=== PATIENT | female | born 1950 | race Caucasian/White ===

== ENCOUNTER 2017-10-10 14:04 | Emergency (ER) | payer OTHER ==
[~2017-10-10] VITALS: Ht 154.9 cm; Wt 81.7 kg
[2017-10-10 14:16] VITALS: BP 130/76; PULSE 86; RESP 16; TEMP 97.6; O2SAT 96
[2017-10-10] MEDS ORDERED: LISI10TA3 PO (14:33)
[2017-10-10] MEDS ORDERED: MONT10TA2 PO (14:33)
[2017-10-10] MEDS ORDERED: TRAM50TA PO (14:33)
[2017-10-10] MEDS ORDERED: DEXI60CA3 PO (14:33)
[2017-10-10] MEDS ORDERED: CELE1CAP8 PO (14:33)
[2017-10-10] MEDS ORDERED: LYRI150C PO (14:33)
[2017-10-10] MEDS ORDERED: CHOL5000 PO (14:33)
--- NOTE | 2017-10-10 15:38 | PD ---
HPI Chief Complaint: Musculoskeletal Complaint Time Seen by Provider: 15:07 Travel History International Travel<30 days: No Contact w/Intl Traveler<30days: No Traveled to known affect area: No History of Present Illness HPI This is a 66-year-old female here with cellulitis isolated to the toe. She had a "cyst" removed by [facility] yesterday and developed pain, erythema, warmth of the area since last night. No fever or chills. Symptoms severity is moderate. No aggravating or alleviating factors. PFSH Past Medical History Arthritis: Yes Cardiovascular Problems: Yes (htn on meds) Diminished Hearing: No Hypertension: Yes Influenza Vaccination: No ?: Not Social History Alcohol Use: No Tobacco Use: No Allergies-Medications (Allergen,Severity, Reaction): Coded Allergies: meperidine (Verified Allergy, Severe, Hallucinations, 10/10/17) morphine (Verified Allergy, Intermediate, nausea and vomiting, 10/10/17) Reported Meds & Prescriptions Reported Meds & Active Scripts Active Ultram (Tramadol HCl) 50 Mg Tab 50 Mg PO Q6H PRN Clindamycin (Clindamycin HCl) 300 Mg Cap 300 Mg PO Q6H 10 Days Reported Vitamin D3 (Cholecalciferol) 5,000 Unit Cap 5,000 Units PO DAILY Singulair (Montelukast Sodium) 10 Mg Tab 10 Mg PO HS Celecoxib 200 Mg Cap 200 Mg PO BID Tramadol (Tramadol HCl) 50 Mg Tab 50 Mg PO BID PRN Lyrica (Pregabalin) 150 Mg Cap 150 Mg PO BID Lisinopril 10 Mg Tab 10 Mg PO DAILY Dexilant (Dexlansoprazole) 60 Mg Cap.bp 60 Mg PO DAILY Review of Systems Except as stated in HPI: all other systems reviewed are Neg General / Constitutional: No: Fever HENT: No: Headaches Gastrointestinal: No: Abdominal Pain Physical Exam Narrative GENERAL: Alert and well-appearing 66-year-old female. SKIN: Warm and dry. Small 0.5 cm open wound to the dorsal aspect of the great toe with small amount of clear drainage. The entire right great toe is erythematous with mild edema. She is able to flex and extend the toe. The area is slightly warm. HEAD: Normocephalic. EYES: No injection or drainage. NECK: Supple CARDIOVASCULAR: Regular rate and rhythm RESPIRATORY: Breath sounds equal bilaterally. No accessory muscle use. MUSCULOSKELETAL: No cyanosis, or edema. Right foot: See skin noted above. Patient has cellulitis of the right great toe extending slightly into the dorsum of the foot. 2+ distal pulses. Patient moves all toes freely. His cap refill Data Data Last Documented VS Vital Signs Date Time Temp Pulse Resp B/P (MAP) Pulse Ox O2 Delivery O2 Flow Rate FiO2 10/10/17 14:16 97.6 86 16 130/76 (94) 96 Orders Orders Clindamycin (Cleocin) (10/10/17 15:45) Tramadol (Ultram) (10/10/17 15:45) Ed Discharge Order (10/10/17 15:43) MDM Medical Decision Making Medical Screen Exam Complete: Yes Emergency Medical Condition: Yes Differential Diagnosis Cellulitis, abscess, surgical wound infection Narrative Course This is a 66-year-old female here with cellulitis isolated to the toe. She had a "cyst" removed by [facility] yesterday and developed pain, erythema, warmth of the area since last night. No fever or chills. She is nontoxic appearing. She has cellulitis of the great toe extending slightly into the dorsal aspect of the foot. The area was marked with a wound PEN and she was put on clindamycin. She is instructed to follow-up with the block bolter mule operator on Thursday or return prior if she develops new or worsening symptoms. Diagnosis Primary Impression: Cellulitis of right foot Referrals: [facility] [employer] [employer] Additional Instructions: Antibiotics as directed. Ultram as needed for pain. Follow-up with podiatry on Thursday morning for recheck. Return if he developed fever, increasing pain, increasing redness Scripts Tramadol (Ultram) 50 Mg Tab 50 MG PO Q6H Y for PAIN, #8 TAB 0 Refills Prov: Yessy Luther 10/10/17 Clindamycin (Clindamycin) 300 Mg Cap 300 MG PO Q6H for Infection for 10 Days, #40 CAP 0 Refills Prov: Yessy Luther 10/10/17 Disposition: 01 DISCHARGE HOME Condition: Stable Yessy Luther Oct 10, 2017 15:38
[2017-10-10] MEDS ORDERED: CLIN300C5 PO (15:41)
[2017-10-10] MEDS ORDERED: TRAM50 PO (15:42)
[2017-10-10] MEDS ORDERED: traMADol HCL 50 MG TAB PO ONE (15:45)
[2017-10-10] MEDS ORDERED: CLINDAMYCIN 150 MG CAP PO ONE (15:45)
== END 2017-10-10 15:50 | disposition home or self-care (01) ==
LOC: PHEFT 14:04
DX: L03.031 Cellulitis of right toe (principal); I10 Essential (primary) hypertension; Z88.8 Allergy status to other drugs, medicaments and biological substances; Z79.899 Other long term (current) drug therapy
CPT/HCPCS: 99283

== ENCOUNTER 2017-10-12 12:09 | Inpatient (IN) | payer OTHER, MEDICARE ==
[~2017-10-12] VITALS: Ht 154.9 cm; Wt 83.0 kg
[2017-10-12] VITALS (7 sets, daily range): BP systolic 86–134; BP diastolic 51–84; PULSE 76–103; RESP 16–20; TEMP 97.8–98.6; O2SAT 94–98
[~2017-10-12 12:09] MED LIST: CELE1CAP8 PO; CHOL5000 PO; CLIN300C5 PO; DEXI60CA3 PO; LISI10TA3 PO; LYRI150C PO; MONT10TA2 PO; TRAM50 PO; TRAM50TA PO
[2017-10-12] MEDS ORDERED: VITA10002 PO (12:30)
[2017-10-12] MEDS ORDERED: ADVA250A INH (12:33)
--- NOTE | 2017-10-12 12:57 | PD ---
HPI Chief Complaint: Pain: Acute or Chronic Time Seen by Provider: 12:27 Travel History International Travel<30 days: No Contact w/Intl Traveler<30days: No Traveled to known affect area: No History of Present Illness HPI 66-year-old female with history of diabetes mellitus, presents today with complaint of right toe and forefoot redness after having a surgical procedure 3 days ago. Patient states she had a growth removed from the top of her right great toe. She states that shortly thereafter started becoming more painful. She reports it started having redness that extended up the foot. There is no reported fevers. The patient states that she was switched over to a second antibiotic on Thursday and reports that it is still progressively become more red and painful. There is no active drainage noted from the toe. She was seen by her bank teller today who sent her here for evaluation and admission for failed outpatient antibiotics. The bank teller stated that Dr. Hurt would be seen the patient while she was an inpatient. PFSH Past Medical History Arthritis: Yes Asthma: Yes Cancer: Yes (colon) Cardiovascular Problems: Yes (htn on meds) Diminished Hearing: No Hypertension: Yes Pneumonia: Yes Influenza Vaccination: No Past Surgical History Abdominal Surgery: Yes (part of colon removed) Appendectomy: Yes Other Surgery: Yes (breast reduction) Social History Alcohol Use: No Tobacco Use: No Substance Use: No Allergies-Medications (Allergen,Severity, Reaction): Coded Allergies: meperidine (Verified Allergy, Severe, Hallucinations, 10/12/17) morphine (Verified Allergy, Intermediate, nausea and vomiting, 10/12/17) Reported Meds & Prescriptions Reported Meds & Active Scripts Active Clindamycin (Clindamycin HCl) 300 Mg Cap 300 Mg PO Q6H 10 Days Reported Advair Diskus Inh (Fluticasone-Salmeterol Inh) 250-50 Mcg/Blist Aer 1 Puff INH BID Rinse mouth after use. Vitamin B-12 (Cyanocobalamin) 1,000 Mcg Tab Unknown Dose PO DAILY Vitamin D3 (Cholecalciferol) 5,000 Unit Cap 5,000 Units PO DAILY Singulair (Montelukast Sodium) 10 Mg Tab 10 Mg PO HS Celecoxib 200 Mg Cap 200 Mg PO BID Tramadol (Tramadol HCl) 50 Mg Tab 50 Mg PO BID PRN Lyrica (Pregabalin) 150 Mg Cap 150 Mg PO BID Lisinopril 10 Mg Tab 10 Mg PO DAILY Dexilant (Dexlansoprazole) 60 Mg bp 60 Mg PO DAILY Review of Systems Except as stated in HPI: all other systems reviewed are Neg General / Constitutional: No: Chills HENT: No: Headaches, Neck Pain Cardiovascular: No: Chest Pain or Discomfort, Palpitations Respiratory: No: Cough, Shortness of Breath Gastrointestinal: No: Nausea, Vomiting, Abdominal Pain Genitourinary: No: Dysuria Musculoskeletal: Positive: Pain, Other (Increased redness), No: Edema (Right great toe and foot) Skin: No Rash, No Itching Neurologic: No: Weakness, Dizziness, Headache, Change in Mentation Psychiatric: No: Anxiety, Depression Physical Exam Narrative GENERAL: Well-developed well-nourished female no acute respiratory distress. SKIN: Focused skin assessment warm/dry. HEAD: Atraumatic. Normocephalic. EYES: Pupils equal and round. No scleral icterus. No injection or drainage. ENT: No nasal bleeding or discharge. Mucous membranes pink and moist. NECK: Trachea midline. No JVD. CARDIOVASCULAR: Regular rate and rhythm. No murmur appreciated. RESPIRATORY: No accessory muscle use. Clear to auscultation. Breath sounds equal bilaterally. GASTROINTESTINAL: Abdomen soft, non-tender, nondistended. Hepatic and splenic margins not palpable. MUSCULOSKELETAL: No obvious deformities. On examination the patient's right foot, there is redness extending up to the mid forefoot. There is a punctate lesion on the dorsum of the right DIP joint. There is some serosanguineous blood noted on the right toe however no active drainage. NEUROLOGICAL: Awake and alert. No obvious cranial nerve deficits. Motor grossly within normal limits. Normal speech. PSYCHIATRIC: Appropriate mood and affect; insight and judgment normal. Data Data Last Documented VS Vital Signs Date Time Temp Pulse Resp B/P (MAP) Pulse Ox O2 Delivery O2 Flow Rate FiO2 10/12/17 14:46 80 86/51 (63) 10/12/17 12:59 16 94 Room Air 10/12/17 12:11 98.6 Orders Orders Complete Blood Count With Diff (10/12/17 12:27) Basic Metabolic Panel (Bmp) (10/12/17 12:27) Blood Culture (10/12/17 12:27) Wound Culture And Gram Stain (10/12/17 12:27) Iv Access Insert/Monitor (10/12/17 12:27) Ecg Monitoring (10/12/17 12:27) Oximetry (10/12/17 12:27) Toe (Min 2vws) (10/12/17 12:27) Hydromorphone Pf Inj (Dilaudid Pf Inj) (10/12/17 13:00) Ondansetron Inj (Zofran Inj) (10/12/17 13:00) Admit To Inpatient (10/12/17 ) Vital Signs (Adult) Q4H (10/12/17 14:19) Activity Oob With Assistance (10/12/17 14:19) Drafter Plumbing / Telemetry .CONTINUOUS (10/12/17 14:19) Diet 1800 Ada Cons Carb (10/12/17 Dinner) Diet Heart Healthy (10/12/17 Dinner) Sodium Chloride 0.9% Flush (Ns Flush) (10/12/17 14:30) Sodium Chloride 0.9% Flush (Ns Flush) (10/12/17 21:00) Basic Metabolic Panel (Bmp) (10/13/17 06:00) Complete Blood Count With Diff (10/13/17 06:00) Pt Request For Service (10/12/17 14:19) Case Management Consult (10/12/17 14:19) Naloxone Inj (Narcan Inj) (10/12/17 14:30) Inpatient Certification (10/12/17 ) Vancomycin Consult Pharmacy (Vancomycin (10/12/17 14:30) Piperacil-Tazo 4.5 Gm Premix (Zosyn 4.5 (10/12/17 15:00) Consult Podiatry (10/12/17 ) (Hub Use Only)Inp Phy Cons/Ref (10/12/17 ) Vancomycin Inj (Vancomycin Inj) (10/12/17 16:00) Admit Order (Ed Use Only) (10/12/17 15:19) Labs Laboratory Tests Test 10/12/17 12:34 White Blood Count 13.5 TH/MM3 Red Blood Count 4.42 MIL/MM3 Hemoglobin 14.0 GM/DL Hematocrit 38.7 % Mean Corpuscular Volume 87.6 FL Mean Corpuscular Hemoglobin 31.7 PG Mean Corpuscular Hemoglobin Concent 36.2 % Red Cell Distribution Width 14.5 % Platelet Count 316 TH/MM3 Mean Platelet Volume 8.2 FL Neutrophils (%) (Auto) 84.4 % Lymphocytes (%) (Auto) 7.5 % Monocytes (%) (Auto) 5.8 % Eosinophils (%) (Auto) 1.6 % Basophils (%) (Auto) 0.7 % Neutrophils # (Auto) 11.4 TH/MM3 Lymphocytes # (Auto) 1.0 TH/MM3 Monocytes # (Auto) 0.8 TH/MM3 Eosinophils # (Auto) 0.2 TH/MM3 Basophils # (Auto) 0.1 TH/MM3 CBC Comment AUTO DIFF Differential Comment AUTO DIFF CONFIRMED Platelet Estimate NORMAL Platelet Morphology Comment NORMAL Blood Urea Nitrogen 7 MG/DL Creatinine 0.76 MG/DL Random Glucose 92 MG/DL Calcium Level 9.1 MG/DL Sodium Level 137 MEQ/L Potassium Level 4.1 MEQ/L Chloride Level 103 MEQ/L Carbon Dioxide Level 24.7 MEQ/L Anion Gap 9 MEQ/L Estimat Glomerular Filtration Rate 77 ML/MIN [facility] Medical Decision Making Medical Screen Exam Complete: Yes Emergency Medical Condition: Yes Differential Diagnosis Osteomyelitis versus cellulitis versus abscess Narrative Course 66-year-old female presents from medical clinic for admission for failed outpatient antibiotic of the right foot. Patient had a procedure done on her right foot and has had increased pain and discomfort. Patient is afebrile. Concern is that this could be osteomyelitis. Patient is diabetic. Case was discussed with the admitting physician. Patient will be admitted to the hospital for IV antibiotics. She is amenable to the plan. Given patient's failed outpatient antibiotics, she will be a full admission. Diagnosis Primary Impression: Right foot cellulitis, failed outpatient antibiotics Additional Impression: Diabetes mellitus Admitting Information Admitting Physician Requests: Admit George Nelson MD Oct 12, 2017 12:57
--- NOTE | 2017-10-12 12:59 | RADRPT ---
EXAM DATE/TIME: 10/12/2017 12:45 [facility] COMPARISON: No previous studies available for comparison. INDICATIONS : Right great toe pain and swelling post op. MEDICAL HISTORY : None. SURGICAL HISTORY : Cyst removal from right great toe. ENCOUNTER: Initial ACUITY: 3 days PAIN SCORE: 9/10 LOCATION: Right great toe. FINDINGS: Examination of the first digit of the right foot demonstrates no acute fracture or dislocation. Soft tissue swelling at the great toe. CONCLUSION: 1. No acute findings. Soft tissue swelling at the great toe. [id number] osteoarthritis. Bob Estrada MD on October 12, 2017 at 12:53 Board Certified Radiologist. This report was verified electronically.
[2017-10-12] MEDS ORDERED: ONDANSETRON HCL 4 MG/2 ML VIAL IV PUSH ONE (13:00)
[2017-10-12] MEDS ORDERED: HYDROmorphone HCL PF 2 MG/ML VIAL IVS ONE (13:00)
[2017-10-12 13:14] LABS: AUTOMATED NEUTROPHIL # 11.4 TH/MM3 (1.8-7.7); BASOPHIL # 0.1 TH/MM3 (0-0.2); BASOPHIL % 0.7 % (0.0-2.0); EOSINOPHIL # 0.2 TH/MM3 (0-0.4); EOSINOPHIL % 1.6 % (0.0-4.0); HEMATOCRIT 38.7 % (35.0-46.0); LYMPH % 7.5 % (9.0-44.0); MEAN CELL VOLUME 87.6 FL (80.0-100.0); MEAN CORPUSCULAR HEMOGLOBIN 31.7 PG (27.0-34.0); MEAN PLATELET VOLUME 8.2 FL (7.0-11.0); MONO % 5.8 % (0.0-8.0); MONOCYTE # 0.8 TH/MM3 (0-0.9); NEUT % 84.4 % (16.0-70.0); PLATELET COUNT 316 TH/MM3 (150-450); RED BLOOD COUNT 4.42 MIL/MM3 (4.00-5.30); RED CELL DISTRIBUTION WIDTH 14.5 % (11.6-17.2); WHITE BLOOD COUNT 13.5 TH/MM3 (4.0-11.0)
[2017-10-12 13:15] LABS: MEAN CORPUSCULAR HGB CONC 36.2 % (32.0-36.0)
[2017-10-12 13:30] LABS: BICARBONATE 24.7 MEQ/L (21.0-32.0); CALCIUM 9.1 MG/DL (8.5-10.1); CREATININE 0.76 MG/DL (0.50-1.00)
[2017-10-12] MEDS ORDERED: Vancomycin Consult Pharmacy 1 EA OTHER SCH (14:30)
[2017-10-12] MEDS ORDERED: NALOXONE HCL 0.4 MG/ML AMP IV PUSH PRN (14:30)
[2017-10-12] MEDS ORDERED: SODIUM CHLORIDE 0.9% FLUSH 10 ML FLUSH IV FLUSH PRN (14:30)
[2017-10-12] MEDS: PIPERACIL-TAZO 4.5 GM PREMIX 100 ML IV SCH (14:46)
--- NOTE | 2017-10-12 15:44 | HHI.HP ---
[facility] Service [place] [facility] Primary Care Physician Fred Johnson M.D. Admission Diagnosis right foot cellulitis failed outpt. abx, diabetes mellitus. Diagnoses: Travel History International Travel<30 Days: No Contact w/Intl Traveler <30 Da: No Traveled to Known Affected Are: No History of Present Illness History from patient, ER physician communication, and review medical records. Patient reported that on Thursday, she had a cyst removed at the medial aspect of her right grade toe. After that, starting Thursday, she started having redness and swelling around the surgical site with streaking up into her foot. She presented to [place] emergency room. She states her fever was 101. She was discharged home on clindamycin. She reports she had severe pain and she could barely put weight on it. Despite taking clindamycin for past 2 days course, she was not improving with the redness streaking up to her lower extremities which is why she went to her steaming machine operator. She was sent from the doctor who saw her there to the emergency room for inpatient IV antibiotics. Patient denies being diabetic. She did however have history of pneumonia a few weeks ago for which she took antibiotics for about 14 days. She finished those antibiotics about a week ago. Apart from the above, patient denies any other symptoms. Denies diarrhea. Review of Systems Except as stated in HPI: all other systems reviewed are Neg Past Family Social History Past Medical History htn asthma colon cancer s/p partial colon resection more than 9yrs , no chemo or radiation Past Surgical History partial colon resection right cyst big toe 2 total knees- 2004 and last may appendectomy breast reduction in 2004 Allergies: Coded Allergies: meperidine (Verified Allergy, Severe, Hallucinations, 10/12/17) morphine (Verified Allergy, Intermediate, nausea and vomiting, 10/12/17) Family History mother- stroke Social History quit smoking more than 20 yrs ago no etoh or drug abuse Physical Exam Vital Signs Vital Signs Date Time Temp Pulse Resp B/P (MAP) Pulse Ox O2 Delivery O2 Flow Rate FiO2 10/12/17 14:46 80 86/51 (63) 10/12/17 12:59 85 16 104/55 (71) 94 Room Air 10/12/17 12:11 98.6 103 16 134/84 (101) 98 Physical Exam GENERAL: This is a well-nourished, well-developed patient, in no apparent distress. SKIN: Redness and swelling in right foot up to right ankle. Right big toe medial aspect with ulceration post cyst resection HEAD: Atraumatic. Normocephalic. No temporal or scalp tenderness. EYES: No scleral icterus. No injection or drainage. ENT: Nose without bleeding, purulent drainage or septal hematoma. Airway patent. NECK: Trachea midline. No JVD or lymphadenopathy. Supple, nontender, no meningeal signs. CARDIOVASCULAR: Regular rate and rhythm without murmurs, gallops, or rubs. RESPIRATORY: Clear to auscultation. Breath sounds equal bilaterally. No wheezes , rales, or rhonchi. GASTROINTESTINAL: Abdomen soft, non-tender, nondistended. No guarding. MUSCULOSKELETAL: Extremities without clubbing, cyanosis, or edema.. No calf tenderness. NEUROLOGICAL: Awake and alert. Motor and sensory grossly within normal limits. Normal speech. Laboratory Laboratory Tests Test 10/12/17 12:34 White Blood Count 13.5 Red Blood Count 4.42 Hemoglobin 14.0 Hematocrit 38.7 Mean Corpuscular Volume 87.6 Mean Corpuscular Hemoglobin 31.7 Mean Corpuscular Hemoglobin Concent 36.2 Red Cell Distribution Width 14.5 Platelet Count 316 Mean Platelet Volume 8.2 Neutrophils (%) (Auto) 84.4 Lymphocytes (%) (Auto) 7.5 Monocytes (%) (Auto) 5.8 Eosinophils (%) (Auto) 1.6 Basophils (%) (Auto) 0.7 Neutrophils # (Auto) 11.4 Lymphocytes # (Auto) 1.0 Monocytes # (Auto) 0.8 Eosinophils # (Auto) 0.2 Basophils # (Auto) 0.1 CBC Comment AUTO DIFF Differential Comment AUTO DIFF CONFIRMED Platelet Estimate NORMAL Platelet Morphology Comment NORMAL Blood Urea Nitrogen 7 Creatinine 0.76 Random Glucose 92 Calcium Level 9.1 Sodium Level 137 Potassium Level 4.1 Chloride Level 103 Carbon Dioxide Level 24.7 Anion Gap 9 Estimat Glomerular Filtration Rate 77 Date/Time Source Procedure Growth Status 10/12/17 12:35 Blood Peripheral Aerobic Blood Culture Pending Received 10/12/17 12:35 Blood Peripheral Anaerobic Blood Culture Pending Received 10/12/17 12:34 Wound Toe Gram Stain Pending Received 10/12/17 12:34 Wound Toe Wound Culture Pending Received Result Diagram: 10/12/17 1234 10/12/17 1234 Imaging Last 48 hours Impressions Toe X-Ray 10/12/17 1227 Signed Impressions: Service Date/Time: Thursday, October 12, 2017 12:45 - CONCLUSION: 1. No acute findings. Soft tissue swelling at the great toe. [id number] osteoarthritis. MD Jarad Dumont VTE Risk Assessment Caprinemile VTE Risk Assessment: Mod/High Risk (score >= 2) Caprini Risk Assessment Model Point Value = 1 Point Value = 2 Point Value = 3 Point Value = 5 Age 41-60 Minor surgery BMI > 25 kg/m2 Swollen legs Varicose veins or History of unexplained or recurrent spontaneous Oral contraceptives or hormone replacement Sepsis (< 1 month) Serious lung disease, including pneumonia (< 1 month) Abnormal pulmonary function Acute myocardial infarction Congestive heart failure (< 1 month) History of inflammatory bowel disease Medical patient at bed rest Age 61-74 Arthroscopic surgery Major open surgery (> 45 min) Laparoscopic surgery (> 45 min) Malignancy Confined to bed (> 72 hours) Immobilizing plaster cast Central venous access Age >= 75 History of VTE Family history of VTE Factor V Leiden Prothrombin [id number] Lupus anticoagulant Anticardiolipin antibodies Elevated serum homocysteine Heparin-induced thrombocytopenia Other congenital or acquired thrombophilia Stroke (< 1 month) Elective arthroplasty Hip, pelvis, or leg fracture Acute spinal cord injury (< 1 month) Prophylaxis Regimen Total Risk Factor Score Risk Level Prophylaxis Regimen 0-1 Low Early ambulation 2 Moderate Order ONE of the following: *Sequential Compression Device (SCD) *Heparin 5000 units SQ BID 3-4 Higher Order ONE of the following medications: *Heparin 5000 units SQ TID *Enoxaparin/Lovenox 40 mg SQ daily (WT < 150 kg, CrCl > 30 mL/min) *Enoxaparin/Lovenox 30 mg SQ daily (WT < 150 kg, CrCl > 10-29 mL/min) *Enoxaparin/Lovenox 30 mg SQ BID (WT < 150 kg, CrCl > 30 mL/min) AND/OR *Sequential Compression Device (SCD) 5 or more Highest Order ONE of the following medications: *Heparin 5000 units SQ TID (Preferred with Epidurals) *Enoxaparin/Lovenox 40 mg SQ daily (WT < 150 kg, CrCl > 30 mL/min) *Enoxaparin/Lovenox 30 mg SQ daily (WT < 150 kg, CrCl > 10-29 mL/min) *Enoxaparin/Lovenox 30 mg SQ BID (WT < 150 kg, CrCl > 30 mL/min) AND *Sequential Compression Device (SCD) Assessment and Plan Assessment and Plan Impression: right foot cellulitis - failed outpatient therapy with recent instrumentation s/p removal of "cyst" from right great toe on Thursday10/09/17 hypotension - likely pain med related, doubt septic shock htn asthma colon cancer s/p partial colon resection more than 9yrs , no chemo or radiation Plan: We'll follow culture results. Vancomycin/Zosyn IV per creatinine clearance and levels. Pain control. Decrease Dilaudid to 0.2 mg IV every 4 hours when necessary due to hypotension. Hold antihypertensive medications. Patient also reports that she has lost significant weight which might be helping her blood pressure and might not need the same dosing as prior. Podiatry consult. DVT prophylaxis with Lovenox. Discussed Condition With patient, at the bedside, ER physician Physician Certification 2 Midnight Certification Type: Admission for Inpatient Services Order for Inpatient Services The services are ordered in accordance with Medicare regulations or non- Medicare payer requirements, as applicable. In the case of services not specified as inpatient-only, they are appropriately provided as inpatient services in accordance with the 2-midnight benchmark. Estimated LOS (days): 2 days is the estimated time the patient will need to remain in the hospital, assuming treatment plan goals are met and no additional complications. Post-Hospital Plan: Home David Pak MD Oct 12, 2017 15:44
[2017-10-12] MEDS ORDERED: HYDROmorphone HCL PF 1 MG/ML VIAL IV PUSH PRN (15:45)
[2017-10-12] MEDS ORDERED: SODIUM CHLOR 0.9% 1000 ML INJ 1,000 ML IV ONE (15:45)
[2017-10-12] MEDS: VANCOMYCIN INJ 1,250 MG in SODIUM CHLOR 0.9% 250 ML INJ 250 ML IV SCH (17:23)
[2017-10-12] MEDS ORDERED: diphenhydrAMINE HCL 50 MG/ML VIAL IV PUSH PRN (18:30)
[2017-10-12] MEDS ORDERED: diphenhydrAMINE HCL 50 MG/ML VIAL IV PUSH ONE (18:30)
[2017-10-12] MEDS ORDERED: methylPREDNISolone SOD SUCC 125 MG/2 ML VIAL IV PUSH ONE (18:30)
[2017-10-12] MEDS: HYDROmorphone HCL PF 2 MG/ML VIAL IV PUSH PRN (20:21)
[2017-10-12] MEDS: MONTELUKAST SODIUM 10 MG TAB PO SCH (20:21)
[2017-10-12] MEDS: SODIUM CHLORIDE 0.9% FLUSH 10 ML FLUSH IV FLUSH SCH (20:21)
[2017-10-12] MEDS: PREGABALIN 75 MG CAP PO SCH (20:21)
[2017-10-12] MEDS ORDERED: NON-FORMULARY DRUG (Fluticasone-Salmeterol Inh (Advair Diskus Inh) 1 PUFF) INH SCH (21:00)
[2017-10-12] MEDS: BUDESONIDE-FORMOTEROL 160/4.5 MCG INHALER INH SCH (21:00)
[2017-10-13] VITALS (13 sets, daily range): BP systolic 87–115; BP diastolic 54–63; PULSE 60–104; RESP 16–20; TEMP 97.4–98; O2SAT 92–97
[2017-10-13] MEDS: HYDROmorphone HCL PF 2 MG/ML VIAL IV PUSH PRN ×5 (02:07→22:54)
[2017-10-13] MEDS: PIPERACIL-TAZO 4.5 GM PREMIX 100 ML IV SCH ×3 (03:40→14:45)
[2017-10-13] MEDS: VANCOMYCIN INJ 1,250 MG in SODIUM CHLOR 0.9% 250 ML INJ 250 ML IV SCH (04:20)
[2017-10-13] MEDS: SODIUM CHLORIDE 0.9% FLUSH 10 ML FLUSH IV FLUSH SCH ×2 (07:33→20:50)
[2017-10-13 08:05] LABS: AUTOMATED NEUTROPHIL # 9.7 TH/MM3 (1.8-7.7); BASOPHIL % 0.1 % (0.0-2.0); HEMATOCRIT 37.9 % (35.0-46.0); HEMOGLOBIN 13.1 GM/DL (11.6-15.3); LYMPH % 4.2 % (9.0-44.0); LYMPHOCYTE # 0.4 TH/MM3 (1.0-4.8); MEAN CELL VOLUME 89.1 FL (80.0-100.0); MEAN CORPUSCULAR HEMOGLOBIN 30.7 PG (27.0-34.0); MEAN CORPUSCULAR HGB CONC 34.5 % (32.0-36.0); MONO % 1.3 % (0.0-8.0); MONOCYTE # 0.1 TH/MM3 (0-0.9); NEUT % 94.4 % (16.0-70.0); PLATELET COUNT 305 TH/MM3 (150-450); RED BLOOD COUNT 4.26 MIL/MM3 (4.00-5.30); WHITE BLOOD COUNT 10.3 TH/MM3 (4.0-11.0)
[2017-10-13] MEDS: PREGABALIN 75 MG CAP PO SCH ×2 (08:42→20:50)
[2017-10-13] MEDS: PANTOPRAZOLE SOD 40 MG DELAYED RELEASE TAB PO SCH (08:42)
[2017-10-13] MEDS: ENOXAPARIN SODIUM 40 MG/0.4 ML SYRINGE SQ SCH (08:42)
[2017-10-13] MEDS ORDERED: NON-FORMULARY DRUG (Dexlansoprazole (Dexilant) 60 MG) PO SCH (09:00)
[2017-10-13 09:03] LABS: BICARBONATE 27.3 MEQ/L (21.0-32.0); CALCIUM 8.4 MG/DL (8.5-10.1); CREATININE 1.29 MG/DL (0.50-1.00)
[2017-10-13] MEDS: BUDESONIDE-FORMOTEROL 160/4.5 MCG INHALER INH SCH ×3 (11:28→20:49)
--- NOTE | 2017-10-13 12:53 | HHI.PR ---
Subjective Remarks minimal pain right big toe erythema markedly improved Objective Vitals Vital Signs Date Time Temp Pulse Resp B/P (MAP) Pulse Ox O2 Delivery O2 Flow Rate FiO2 10/13/17 12:00 97.7 94 20 104/57 (73) 93 10/13/17 08:00 97.6 77 20 115/55 (75) 94 10/13/17 04:16 97.4 77 18 95/56 (69) 93 10/13/17 03:47 85 10/13/17 00:17 72 10/13/17 00:00 97.4 79 18 107/61 (76) 92 10/12/17 20:27 Room Air 10/12/17 20:26 76 10/12/17 20:18 97.9 82 20 117/67 (84) 94 10/12/17 17:34 77 106/63 (77) 10/12/17 16:00 97.8 16 96 10/12/17 15:51 10/12/17 14:46 80 86/51 (63) 10/12/17 12:59 85 16 104/55 (71) 94 Room Air I/O 10/12/17 10/12/17 10/12/17 10/13/17 10/13/17 10/13/17 07:00 15:00 23:00 07:00 15:00 23:00 Intake Total 1262.5 ml 834.5 ml 340 ml Balance 1262.5 ml 834.5 ml 340 ml Intake Oral 472 ml 240 ml IV Total 1262.5 ml 362.5 ml 100 ml # Voids 4 # Bowel Movements 0 Result Diagram: 10/13/17 0709 10/13/17 0709 Imaging Last Impressions Toe X-Ray 10/12/17 1227 Signed Impressions: Service Date/Time: Thursday, October 12, 2017 12:45 - CONCLUSION: 1. No acute findings. Soft tissue swelling at the great toe. [id number] osteoarthritis. Bob Estrada MD Objective Remarks awake and alert, no acute distress anicteric lungs- no rlaes regular rhythm abdomen soft right foot- erythema receded from marked area, right big toe- erythema and swollen, sausage like ++ DP, PT A/P Assessment and Plan 66 years old female right foot cellulitis - s/p removal of "cyst" from right great toe on Thursday- MRSA - Podiatry consulted- will defer imaging study - continue IV zosyn.and IV Vancomycin- pharmacy ff - diluaid prn for pain hypotension - likely pain med related- BP improved, doubt septic shock History of hypertension - Patient also reports that she has lost significant weight which might be helping her blood pressure and might not need the same dosing as prior. - hold BP meds for now HONEY- - start gentle fluids - ff BMP - monitor renal functions on Vanco asthma- in remission colon cancer s/p partial colon resection more than 9yrs , no chemo or radiation DVT prophylaxis with Lovenox. Sade Cotton MD Oct 13, 2017 12:53
[2017-10-13] MEDS: SODIUM CHLOR 0.9% 1000 ML INJ 1,000 ML IV SCH (14:44)
[2017-10-13] MEDS ORDERED: GADODIAMIDE PF 287 MG/ML 5 ML VIAL (for RAD MRI) IV PUSH ONE (17:25)
--- NOTE | 2017-10-13 18:15 | RADRPT ---
EXAM DATE/TIME: 10/13/2017 16:55 [place] COMPARISON: TOE RIGHT 1ST DIGIT(MIN 2VWS), October 12, 2017, 12:45. INDICATIONS : Abscess. Wound on great toe. CONTRAST: 15 cc Omniscan (gadodiamide) IV MEDICAL HISTORY : Carcinoma, colon. SURGICAL HISTORY : Colon. Breast reduction. Bi-lateral knee replacement. ENCOUNTER: Subsequent ACUITY: 2 months PAIN SCORE: 3/10 LOCATION: Right foot TECHNIQUE: Multiplanar, multisequence MRI examination was performed without contrast and after the intravenous a dministration of gadolinium. FINDINGS: Special attention is directed to the 1st digit. There is some T2 prolongation in the soft tissues ab out the proximal phalanx and diffuse T2 prolongation in the subcutaneous soft tissues of the forefoot dorsally. Within the marrow of the mid shaft of the proximal phalanx, there is irregular shaped are a of inhomogeneous signal which measures 1.5 x 0.9 cm and is bright on T2 and mixed-signal intensity on T1. There is no abnormal contrast-enhancement within that region. There is a small field distort ion artifact in the dorsal medial soft tissues between the distal and proximal phalanx located in the subcutaneous tissues; no cause is field distortion artifact is uncertain. No signal abnormality seen in the marrow of the nature of the forefoot osseous structures. CONCLUSION: 1. Signal abnormality within the mid shaft of the proximal phalanx of the 1st digit with T2 prolongat ion but no abnormal enhancement. The configuration suggests a possible sinus tract and possible oste omyelitis. This cannot be stated, however, with certainty. There are no radiographic abnormalities in the region of the abnormal signal. 2. Focal area of field distortion artifact correlates to an irregularity of the skin margin seen medi ally and dorsally in the 1st digit. No metallic foreign body seen in this area on recent conventiona l radiographs. Darian Krishnamurthy MD on October 13, 2017 at 18:06 Board Certified Radiologist. This report was verified electronically.
[2017-10-13] MEDS: MONTELUKAST SODIUM 10 MG TAB PO SCH (20:50)
[2017-10-13] MEDS: PIPERACIL-TAZO 3.375 GM PREMIX 50 ML IV SCH (20:50)
[2017-10-13] MEDS ORDERED: SODIUM CHLORID 0.9% 500 ML INJ 500 ML IV ONE (22:00)
[2017-10-14] VITALS (11 sets, daily range): BP systolic 93–138; BP diastolic 67–75; PULSE 63–104; RESP 16–20; TEMP 97.2–98.7; O2SAT 94–97
[2017-10-14] MEDS: SODIUM CHLOR 0.9% 1000 ML INJ 1,000 ML IV SCH ×2 (02:00→07:43)
[2017-10-14] MEDS: HYDROmorphone HCL PF 2 MG/ML VIAL IV PUSH PRN ×5 (03:03→21:46)
[2017-10-14] MEDS: PIPERACIL-TAZO 3.375 GM PREMIX 50 ML IV SCH ×2 (03:04→07:42)
[2017-10-14] MEDS ORDERED: PHARMACY ORDERED LAB ONE (03:45)
[2017-10-14] MEDS: BUDESONIDE-FORMOTEROL 160/4.5 MCG INHALER INH SCH ×2 (07:23→20:21)
[2017-10-14] MEDS: SODIUM CHLORIDE 0.9% FLUSH 10 ML FLUSH IV FLUSH SCH ×2 (07:23→20:21)
[2017-10-14] MEDS: PREGABALIN 75 MG CAP PO SCH ×2 (07:43→20:21)
[2017-10-14] MEDS: ENOXAPARIN SODIUM 40 MG/0.4 ML SYRINGE SQ SCH (07:43)
[2017-10-14] MEDS: PANTOPRAZOLE SOD 40 MG DELAYED RELEASE TAB PO SCH (07:43)
--- NOTE | 2017-10-14 08:12 | PD.POD ---
Subjective Pain score: 3 Remarks Pain has somewhat improved Past Med/Surg/Social History Social History Smoking Status: Former Smoker Objective Vital Signs Vital Signs Date Time Temp Pulse Resp B/P (MAP) Pulse Ox O2 Delivery O2 Flow Rate FiO2 10/14/17 04:00 97.4 78 16 98/70 (79) 97 10/14/17 03:53 63 10/14/17 00:00 97.2 77 18 107/69 (82) 97 10/13/17 23:43 60 10/13/17 22:58 90/54 (66) 10/13/17 20:55 Room Air 10/13/17 20:00 98.0 71 16 87/63 (71) 97 10/13/17 19:47 63 10/13/17 16:17 96 10/13/17 16:00 97.4 91 20 99/58 (72) 95 10/13/17 12:00 97.7 94 20 104/57 (73) 93 10/13/17 12:00 104 10/13/17 08:15 95 Coded Allergies: meperidine (Verified Allergy, Severe, Hallucinations, 10/12/17) morphine (Verified Allergy, Intermediate, nausea and vomiting, 10/12/17) Medications and IVs Administered Medications Medications (Trade) Dose Ordered Sig/Meet Route PRN Reason Start Time Stop Time Status Last Admin Dose Admin Sodium Chloride (NS Flush) 2 ml BID IV FLUSH 10/12/17 21:00 10/14/17 07:23 Vancomycin HCl 1250 mg/Sodium Chloride 262.5 ml @ 250 mls/hr Q12H IV 10/12/17 16:00 Future Hold 10/13/17 04:20 Montelukast Sodium (Singulair) 10 mg HS PO 10/12/17 21:00 10/13/17 20:50 Pregabalin (Lyrica) 150 mg BID PO 10/12/17 21:00 10/14/17 07:43 Pantoprazole Sodium (Protonix) 40 mg DAILY PO 10/13/17 09:00 10/14/17 07:43 Budesonide/ Formoterol Fumarate (Symbicort 160-4.5 Mcg Inh) 2 puff BID INH 10/12/17 21:00 10/13/17 11:29 Enoxaparin Sodium (Lovenox Inj) 40 mg Q24H SQ 10/13/17 09:00 10/14/17 07:43 Hydromorphone HCl (Dilaudid Pf Inj) 0.2 mg Q4H PRN IV PUSH PAIN > 5 10/12/17 18:30 10/14/17 06:53 Sodium Chloride 1,000 ml @ 75 mls/hr [id number] IV 10/13/17 14:00 10/14/17 07:43 Piperacillin Sod/ Tazobactam Sod 50 ml @ 100 mls/hr Q6H IV 10/13/17 21:00 10/14/17 07:42 Laboratory Tests Test 10/12/17 12:34 10/13/17 07:09 White Blood Count 13.5 TH/MM3 10.3 TH/MM3 Red Blood Count 4.42 MIL/MM3 4.26 MIL/MM3 Hemoglobin 14.0 GM/DL 13.1 GM/DL Hematocrit 38.7 % 37.9 % Mean Corpuscular Volume 87.6 FL 89.1 FL Mean Corpuscular Hemoglobin 31.7 PG 30.7 PG Mean Corpuscular Hemoglobin Concent 36.2 % 34.5 % Red Cell Distribution Width 14.5 % 15.0 % Platelet Count 316 TH/MM3 305 TH/MM3 Mean Platelet Volume 8.2 FL 8.0 FL Neutrophils (%) (Auto) 84.4 % 94.4 % Lymphocytes (%) (Auto) 7.5 % 4.2 % Monocytes (%) (Auto) 5.8 % 1.3 % Eosinophils (%) (Auto) 1.6 % 0.0 % Basophils (%) (Auto) 0.7 % 0.1 % Neutrophils # (Auto) 11.4 TH/MM3 9.7 TH/MM3 Lymphocytes # (Auto) 1.0 TH/MM3 0.4 TH/MM3 Monocytes # (Auto) 0.8 TH/MM3 0.1 TH/MM3 Eosinophils # (Auto) 0.2 TH/MM3 0.0 TH/MM3 Basophils # (Auto) 0.1 TH/MM3 0.0 TH/MM3 CBC Comment AUTO DIFF DIFF FINAL Differential Comment AUTO DIFF CONFIRMED Platelet Estimate NORMAL Platelet Morphology Comment NORMAL Laboratory Tests Test 10/12/17 12:34 10/13/17 07:09 Blood Urea Nitrogen 7 MG/DL 13 MG/DL Creatinine 0.76 MG/DL 1.29 MG/DL Random Glucose 92 MG/DL 149 MG/DL Calcium Level 9.1 MG/DL 8.4 MG/DL Sodium Level 137 MEQ/L 139 MEQ/L Potassium Level 4.1 MEQ/L 4.1 MEQ/L Chloride Level 103 MEQ/L 105 MEQ/L Carbon Dioxide Level 24.7 MEQ/L 27.3 MEQ/L Anion Gap 9 MEQ/L 7 MEQ/L Estimat Glomerular Filtration Rate 77 ML/MIN 42 ML/MIN Microbiology Date/Time Source Procedure Growth Status 10/12/17 12:35 Blood Peripheral Aerobic Blood Culture - Preliminary NO GROWTH IN 1 DAY Resulted 10/12/17 12:35 Blood Peripheral Anaerobic Blood Culture - Preliminary NO GROWTH IN 1 DAY Resulted 10/12/17 12:30 Blood Peripheral Aerobic Blood Culture - Preliminary NO GROWTH IN 1 DAY Resulted 10/12/17 12:30 Blood Peripheral Anaerobic Blood Culture - Preliminary NO GROWTH IN 1 DAY Resulted 10/12/17 12:34 Wound Toe Gram Stain - Final Resulted 10/12/17 12:34 Wound Culture - Preliminary S. Aureus Mrsa Resulted Last 72 hours Impressions Foot MRI 10/13/17 0000 Signed Impressions: Service Date/Time: Friday, October 13, 2017 16:55 - CONCLUSION: 1. Signal abnormality within the mid shaft of the proximal phalanx of the 1st digit with T2 prolongation but no abnormal enhancement. The configuration suggests a possible sinus tract and possible osteomyelitis. This cannot be stated, however, with certainty. There are no radiographic abnormalities in the region of the abnormal signal. 2. Focal area of field distortion artifact correlates to an irregularity of the skin margin seen medially and dorsally in the 1st digit. No metallic foreign body seen in this area on recent conventional radiographs. Darian Krishnamurthy MD Toe X-Ray 10/12/17 1227 Signed Impressions: Service Date/Time: Thursday, October 12, 2017 12:45 - CONCLUSION: 1. No acute findings. Soft tissue swelling at the great toe. [id number] osteoarthritis. Bob Estrada MD Physical Exam Remarks Right hallux IPJ ulcerated raised skin lesion with purulent drainage mild decrease in redness focal erythema to hallux pain with range of motion pedal pulses fully palpable Assessment & Plan Diagnosis: (1) Abscess of right foot including toes ICD Codes: L02.611 - Cutaneous abscess of right foot (2) Osteomyelitis of ankle or foot, right, acute ICD Codes: M86.171 - Other acute osteomyelitis, right ankle and foot A/P MRI reviewed is positive recommending infectious disease consultation, continue IV antibiotics, possible incision and drainage in the next 1-2 days with possible bone biopsy, will discuss with infections disease Victor Manuel Hurt DPM Oct 14, 2017 08:12
[2017-10-14 08:50] LABS: CREATININE 1.69 MG/DL (0.50-1.00)
[2017-10-14 08:59] LABS: RANDOM VANCOMYCIN 11.7 COMMENT
--- NOTE | 2017-10-14 11:52 | PD.ID.CON ---
History of Present Illness Service ID Consult Requested By Dr Hurt Reason for Consult Hallux osteomyelitis Primary Care Physician Fred Johnson M.D. Diagnoses: History of Present Illness 66 yo non diabetic female underwent R hallux surgery (cyst removal) last Thu Within next 24 hrs she decvelopped swelling pain and redness of the hallux which keep getting worse SHe presente family program specialist oct 10 and she was prescribed clindamycin which did not help her and she came back with worsening symptoms, redness and swelling now spreadig to her forefoot Denies fever, chills, night sweats On presentation afebrie, WBC 13 K Blood clx negative, hallux culture + for MRSA, which is clindamycin resistant She was started on IV zosyn and vancomycin and her GFR has fell to 30 from normal on presntation Denies preexisting renal problems MRI with ? osteo Review of Systems Except as stated in HPI: all other systems reviewed are Neg Past Family Social History Allergies: Coded Allergies: meperidine (Verified Allergy, Severe, Hallucinations, 10/12/17) morphine (Verified Allergy, Intermediate, nausea and vomiting, 10/12/17) Past Medical History htn asthma colon cancer s/p partial colon resection more than 9yrs , no chemo or radiation Past Surgical History partial colon resection right cyst big toe 2 total knees- 2004 and last december appendectomy breast reduction in 2004 Active Ordered Medications Medications where reviewed in EMR Antibiotics Include: zosyn vancomycin Family History No DM mother- stroke Social History quit smoking more than 20 yrs ago no etoh or drug abuse Physical Exam Vital Signs Vital Signs Date Time Temp Pulse Resp B/P (MAP) Pulse Ox O2 Delivery O2 Flow Rate FiO2 10/14/17 08:06 98.7 72 20 138/68 (91) 96 10/14/17 08:00 97.4 71 16 93/67 (76) 94 10/14/17 04:00 97.4 78 16 98/70 (79) 97 10/14/17 03:53 63 10/14/17 00:00 97.2 77 18 107/69 (82) 97 10/13/17 23:43 60 10/13/17 22:58 90/54 (66) 10/13/17 20:55 Room Air 10/13/17 20:00 98.0 71 16 87/63 (71) 97 10/13/17 19:47 63 10/13/17 16:17 96 10/13/17 16:00 97.4 91 20 99/58 (72) 95 10/13/17 12:00 97.7 94 20 104/57 (73) 93 10/13/17 12:00 104 Physical Exam CONSTITUTIONAL/GENERAL: This is an obese elderly patient, in no apparent distress. TUBES/LINES/DRAINS: SKIN: No jaundice, rashes, or lesions. Skin temperature appropriate. Not diaphoretic. HEAD: Atraumatic. Normocephalic. EYES: Pupils equal and round and reactive. Extraocular motions intact. No scleral icterus. No injection or drainage. Fundi not examined. ENT: Hearing grossly normal. Nose without bleeding or purulent drainage. Throat without visible erythema, exudates, masses, or lesions. NECK: Trachea midline. Supple, nontender. No palpable thyroid enlargement or nodularity. CARDIOVASCULAR: Regular rate and rhythm without murmurs, gallops, or rubs. No JVD. Peripheral pulses symmetric. Perifery well perfused RESPIRATORY/CHEST: Symmetric, unlabored respirations. Clear to auscultation. Breath sounds equal bilaterally. No wheezes, rales, or rhonchi. GASTROINTESTINAL: Abdomen soft, non-tender, nondistended. No hepato-splenomegaly , or palpable masses. No guarding. Bowel sounds present. GENITOURINARY: Without palpable bladder distension. [place] catheter in place. MUSCULOSKELETAL: Extremities without clubbing, cyanosis, or edema. No joint tenderness or effusion noted. No calf tenderness. No mottling or clubbing. R hallux is very edematous (2 x swollen) erythematous with purulence present some residual erythema, edema is noted on forefoot, cw diminishing swelling and redness No ascending lymphangitis, LYMPHATICS: No palpable cervical or supraclavicular adenopathy. No inguinal lymphadenopathy NEUROLOGICAL: Awake and alert. Motor and sensory grossly within normal limits. Follows commands. Clear speech. Moves all extremities. PSYCHIATRIC: No obvious anxiety/depression. no apparent hallucinations or other psychotic thought process. Laboratory Laboratory Tests Test 10/14/17 06:00 Creatinine 1.69 Estimat Glomerular Filtration Rate 30 Random Vancomycin Level 11.7 Date/Time Source Procedure Growth Status 10/12/17 12:35 Blood Peripheral Aerobic Blood Culture - Preliminary NO GROWTH IN 2 DAYS Resulted 10/12/17 12:35 Blood Peripheral Anaerobic Blood Culture - Preliminary NO GROWTH IN 2 DAYS Resulted 10/12/17 12:34 Wound Toe Gram Stain - Final Complete 10/12/17 12:34 Wound Culture - Final S. Aureus Mrsa Complete Result Diagram: 10/13/17 0709 10/14/17 0600 Imaging Last Impressions Foot MRI 10/13/17 0000 Signed Impressions: Service Date/Time: Friday, October 13, 2017 16:55 - CONCLUSION: 1. Signal abnormality within the mid shaft of the proximal phalanx of the 1st digit with T2 prolongation but no abnormal enhancement. The configuration suggests a possible sinus tract and possible osteomyelitis. This cannot be stated, however, with certainty. There are no radiographic abnormalities in the region of the abnormal signal. 2. Focal area of field distortion artifact correlates to an irregularity of the skin margin seen medially and dorsally in the 1st digit. No metallic foreign body seen in this area on recent conventional radiographs. Darian Krishnamurthy MD Toe X-Ray 10/12/17 1227 Signed Impressions: Service Date/Time: Thursday, October 12, 2017 12:45 - CONCLUSION: 1. No acute findings. Soft tissue swelling at the great toe. [id number] osteoarthritis. Bob Estrada MD Assessment and Plan Assessment and Plan R hallux osteomyelitis following surgical procedure, MRSA MRI image was dw radiologist Failed empiric clindamycin 2/2 resistance to the agent HONEY on zosyn, vanco dc zosyn, vanco chk urine eos start zyvox fu closely renal fnx Ciara Nair MD Oct 14, 2017 11:52
--- NOTE | 2017-10-14 13:08 | HHI.PR ---
Subjective Remarks looking forward to surgery tomorrow pain controlled Objective Vitals Vital Signs Date Time Temp Pulse Resp B/P (MAP) Pulse Ox O2 Delivery O2 Flow Rate FiO2 10/14/17 12:00 97.5 65 17 98/72 (81) 95 10/14/17 08:06 98.7 72 20 138/68 (91) 96 10/14/17 08:00 97.4 71 16 93/67 (76) 94 10/14/17 04:00 97.4 78 16 98/70 (79) 97 10/14/17 03:53 63 10/14/17 00:00 97.2 77 18 107/69 (82) 97 10/13/17 23:43 60 10/13/17 22:58 90/54 (66) 10/13/17 20:55 Room Air 10/13/17 20:00 98.0 71 16 87/63 (71) 97 10/13/17 19:47 63 10/13/17 16:17 96 10/13/17 16:00 97.4 91 20 99/58 (72) 95 I/O 10/13/17 10/13/17 10/13/17 10/14/17 10/14/17 10/14/17 07:00 15:00 23:00 07:00 15:00 23:00 Intake Total 834.5 ml 820 ml 50 ml 1379 ml Balance 834.5 ml 820 ml 50 ml 1379 ml Intake Oral 472 ml 720 ml IV Total 362.5 ml 100 ml 50 ml 1379 ml # Voids 4 3 3 # Bowel Movements 0 1 Result Diagram: 10/13/17 0709 10/14/17 0600 Imaging Last Impressions Foot MRI 10/13/17 0000 Signed Impressions: Service Date/Time: Friday, October 13, 2017 16:55 - CONCLUSION: 1. Signal abnormality within the mid shaft of the proximal phalanx of the 1st digit with T2 prolongation but no abnormal enhancement. The configuration suggests a possible sinus tract and possible osteomyelitis. This cannot be stated, however, with certainty. There are no radiographic abnormalities in the region of the abnormal signal. 2. Focal area of field distortion artifact correlates to an irregularity of the skin margin seen medially and dorsally in the 1st digit. No metallic foreign body seen in this area on recent conventional radiographs. Darian Krishnamurthy MD Toe X-Ray 10/12/17 1227 Signed Impressions: Service Date/Time: Thursday, October 12, 2017 12:45 - CONCLUSION: 1. No acute findings. Soft tissue swelling at the great toe. [id number] osteoarthritis. Bob Estrada MD Objective Remarks awake and alert, no acute distress anicteric lungs- no rlaes regular rhythm abdomen soft right foot- erythema receded from marked area, right big toe- erythema and swollen, sausage like ++ DP, PT A/P Assessment and Plan 66 years old female right foot cellulitis - s/p removal of "cyst" from right great toe on Thursday- MRSA - Podiatry ff - continue IV zosyn. - zyvox added to regimen -will hold vancomycin with increase in creatinine - diluaid prn for pain hypotension - likely pain med related- BP improved, doubt septic shock History of hypertension - Patient also reports that she has lost significant weight which might be helping her blood pressure and might not need the same dosing as prior. - hold BP meds for now HONEY- - start gentle fluids - ff BMP - Hold Vancomycin asthma- in remission colon cancer s/p partial colon resection more than 9yrs , no chemo or radiation DVT prophylaxis with Lovenox. Sade Cotton MD Oct 14, 2017 13:08
[2017-10-14] MEDS: LINEZOLID 600 MG TAB PO SCH (15:20)
[2017-10-14] MEDS ORDERED: VANCOMYCIN INJ 1,250 MG in SODIUM CHLOR 0.9% 250 ML INJ 250 ML IV SCH (16:00)
--- NOTE | 2017-10-14 17:42 | MB ---
cc: LEO RUDOLPHM DATE OF CONSULTATION 10/13/2017 REASON FOR CONSULTATION Right hallux ulcer infection. HISTORY OF PRESENT ILLNESS This is a pleasant 66-year-old female who had a biopsy performed within the last week. She was seen in clinic and there was noted to be increased redness and swelling. She was prescribed clindamycin and there was noted to be significant worsening. She was sent to the hospital. Currently I am seeing the patient bedside. She is having pain, purulence from the area. She denies any nausea, vomiting, fever or chills. Upon questioning, the cyst that she has had it for a long time. She is unsure if this was a callous or cyst, but her description does not really fall into line with a chronic infection, at least at the skin level. PAST MEDICAL HISTORY 1. Hypertension. 2. Asthma. 3. Colon cancer. PAST SURGICAL HISTORY 1. Partial colon resection. 2. Chronic cyst big toe. Biopsy outpatient from office is pending. 3. Total knee replacement 2004. 4. And last December appendectomy. 5. Breast reduction. MEDICATIONS Reviewed in the OR. The patient has been switched to Zyvox. Please see the complete med list in chart. ALLERGIES MEPERIDINE AND MORPHINE. PHYSICAL EXAMINATION VITAL SIGNS: Temperature is 98, 71 pulse rate. Respiratory rate is 16. Blood pressure 87/63. GENERAL: This is an alert and oriented female seen bedside exhibiting nonlabored respirations. EXTREMITIES: The right lower extremity is examined. There is noted to be a purulent drainage ulcer of the dorsal aspect of the hallux that probes to joint capsule. There is purulence noted. Significant periwound erythema extending up to the hallux and the dorsum of the foot. There appears to be no obvious soft tissue emphysema or spread of infection beyond the IPJ or the joint level of hallux. Pedal pulses palpable. Sensation intact. Mild hallux malleus or joint contracture noted. However, the patient is capable of extension and flexion. LABORATORY FINDINGS White blood cell trending 13.5 down to 10.3. Hemoglobin/hematocrit 13/79. Platelet count is 305. Chem-7 sodium 139, potassium 4.1, chloride 105, CO2 27.3, BUN is 13, creatinine is 1.29. Microbial findings, MRSA clindamycin resistant, please see culture and sensitivity in the chart. IMAGING FINDINGS X-ray no acute findings. Mild swelling noted. MRI findings suspicious for osteomyelitis of the hallux IPJ. ASSESSMENT/PLAN Right hallux ulcer infection status post biopsy with possible osteomyelitis. My recommendation is to continue IV antibiotics see how the patient does over the next 24-48 hours. However, there is a high suspicion of the need for debridement, exploration of this possibly chronically inflamed or infected cyst. Infectious disease consulted. The patient appears to be improving. ADAN Monroy/AJNN /4:09 PM /5:21 PM
[2017-10-14] MEDS: MONTELUKAST SODIUM 10 MG TAB PO SCH (20:21)
[2017-10-15] VITALS (8 sets, daily range): BP systolic 98–141; BP diastolic 65–84; PULSE 70–93; RESP 17–19; TEMP 97.5–98.9; O2SAT 93–96
[2017-10-15] MEDS: SODIUM CHLOR 0.9% 1000 ML INJ 1,000 ML IV SCH ×3 (01:49→20:08)
[2017-10-15] MEDS: LINEZOLID 600 MG TAB PO SCH ×2 (01:49→15:00)
[2017-10-15] MEDS: HYDROmorphone HCL PF 2 MG/ML VIAL IV PUSH PRN ×3 (01:49→20:31)
[2017-10-15 07:12] LABS: BICARBONATE 29.3 MEQ/L (21.0-32.0); CALCIUM 8.6 MG/DL (8.5-10.1); CREATININE 1.49 MG/DL (0.50-1.00)
[2017-10-15] MEDS: ENOXAPARIN SODIUM 40 MG/0.4 ML SYRINGE SQ SCH ×2 (09:00→09:10)
[2017-10-15] MEDS: PANTOPRAZOLE SOD 40 MG DELAYED RELEASE TAB PO SCH ×2 (09:00→09:10)
[2017-10-15] MEDS: PREGABALIN 75 MG CAP PO SCH ×2 (09:10→20:32)
[2017-10-15] MEDS ORDERED: ONDANSETRON HCL 4 MG/2 ML VIAL IV PUSH PRN (10:00)
--- NOTE | 2017-10-15 10:00 | HHI.PR ---
Subjective Remarks awake and alert pain when foot weightbearing-/gravity and turns red per patient complained of nausea after Zyvox voiding well states having some loose stools Objective Vitals Vital Signs Date Time Temp Pulse Resp B/P (MAP) Pulse Ox O2 Delivery O2 Flow Rate FiO2 10/15/17 04:00 Room Air 10/15/17 04:00 85 10/15/17 04:00 97.5 84 17 137/83 (101) 96 10/15/17 00:00 97.8 85 18 98/65 (76) 95 10/15/17 00:00 87 10/15/17 00:00 Room Air 10/14/17 20:00 Room Air 10/14/17 20:00 90 10/14/17 19:17 97.7 87 17 120/75 (90) 10/14/17 16:40 98.7 84 18 114/70 (85) 95 10/14/17 15:46 104 10/14/17 12:00 97.5 65 17 98/72 (81) 95 I/O 10/14/17 10/14/17 10/14/17 10/15/17 10/15/17 10/15/17 07:00 15:00 23:00 07:00 15:00 23:00 Intake Total 1379 ml 50 ml 520 ml 1810 ml Balance 1379 ml 50 ml 520 ml 1810 ml Intake Oral 520 ml 400 ml IV Total 1379 ml 50 ml 1410 ml # Voids 3 5 3 # Bowel Movements 1 2 Result Diagram: 10/13/17 0709 10/15/17 0611 Imaging Last Impressions Foot MRI 10/13/17 0000 Signed Impressions: Service Date/Time: Friday, October 13, 2017 16:55 - CONCLUSION: 1. Signal abnormality within the mid shaft of the proximal phalanx of the 1st digit with T2 prolongation but no abnormal enhancement. The configuration suggests a possible sinus tract and possible osteomyelitis. This cannot be stated, however, with certainty. There are no radiographic abnormalities in the region of the abnormal signal. 2. Focal area of field distortion artifact correlates to an irregularity of the skin margin seen medially and dorsally in the 1st digit. No metallic foreign body seen in this area on recent conventional radiographs. Darian Krishnamurthy MD Toe X-Ray 10/12/17 1227 Signed Impressions: Service Date/Time: Thursday, October 12, 2017 12:45 - CONCLUSION: 1. No acute findings. Soft tissue swelling at the great toe. [id number] osteoarthritis. Bob Estrada MD Objective Remarks awake and alert, no acute distress anicteric lungs- no rales regular rhythm abdomen soft right foot- erythema improved but right big toe + abscess- + erythema and swelling, tender to touch ++ DP, PT A/P Assessment and Plan 66 years old female right foot cellulitis - s/p removal of "cyst" from right great toe on Thursday- MRSA - Podiatry ff - now on Zyvox - vancomycin DC 10/14 with increase in creatinine. zosyn DC - diluaid prn for pain hypotension - likely pain med related- resolved History of hypertension - Patient also reports that she has lost significant weight which might be helping her blood pressure and might not need the same dosing as prior. - hold BP meds for now HONEY- - start gentle fluids- increase rate - per patient voiding well - ff BMP - Vanco discontinue 10/14 Diarrhea- ? ab associated -increase fluids check c diff Nausea- ? adverse reaction to Zyvox- -will monitor - no acute abdomen HAD/ Asthma- in remission colon cancer s/p partial colon resection more than 9yrs , no chemo or radiation DVT prophylaxis with Lovenox.- on hold for surgery Sade Cotton MD Oct 15, 2017 10:00
[2017-10-15] MEDS ORDERED: LIDOCAINE HCL 1% PF 5 ML SYRINGE OTHER ONE (12:00)
[2017-10-15] MEDS ORDERED: ONDANSETRON HCL 4 MG/2 ML VIAL IV ONE (12:00)
[2017-10-15] MEDS ORDERED: PROPOFOL 200 MG/20 ML AMP IV ONE (12:00)
[2017-10-15] MEDS ORDERED: SUCCINYLCHOLINE CHLORIDE 200 MG/10 ML VIAL IV ONE (12:00)
[2017-10-15] MEDS ORDERED: DEXAMETHASONE SOD PHOS 4 MG/ML VIAL IV ONE (12:00)
[2017-10-15] MEDS ORDERED: BUPIVACAINE HCL PF 0.25% 30 ML VIAL ONE (12:23)
[2017-10-15] MEDS ORDERED: NEOMYCIN/POLYMYXIN 1 ML G.U. IRRIGANT ONE (12:27)
[2017-10-15] MEDS ORDERED: CLINDAMYCIN PHOS 600 MG/4 ML VIAL ONE (13:23)
--- NOTE | 2017-10-15 13:58 | HHI.PR ---
Immediate Post Op Note Procedure Date: Oct 15, 2017 Pre Op Diagnosis: (1) Osteomyelitis of ankle or foot, right, acute (2) Abscess of right foot including toes Post Op Diagnosis: same Surgeon: Victor Manuel Thorpe Desktop Manager(s): scrub Procedure: right hallux incision drainage debridement with incision bone cortex proximal phalanx Findings: pus in the joint and tendon Complications: none Specimen(s) removed: bone and soft tissue Anesthesia: General, Local Tourniquet time (min at mmHg) approx 20 min 250 right ankle Patient to: PACU Patient Condition: Good Implant/Devices: SEE IMPLANT LOG (if applicable) Date/Time of Procedure: SEE SURGICAL CARE RECORD Victor Manuel Thorpe DPM Oct 15, 2017 13:58
[2017-10-15] MEDS ORDERED: DO NOT ADM ANY ANTICOAGULANT DRUGS PRN (14:00)
[2017-10-15 17:19] LABS: HEMOGLOBIN A1C 5.4 % (4.3-6.0)
[2017-10-15] MEDS: ACETAMINOPHEN 325 MG TAB PO PRN (18:54)
[2017-10-15] MEDS: MONTELUKAST SODIUM 10 MG TAB PO SCH (20:32)
[2017-10-15] MEDS: SODIUM CHLORIDE 0.9% FLUSH 10 ML FLUSH IV FLUSH SCH (20:35)
[2017-10-15] MEDS: BUDESONIDE-FORMOTEROL 160/4.5 MCG INHALER INH SCH (20:37)
[2017-10-16] VITALS (10 sets, daily range): BP systolic 112–149; BP diastolic 65–86; PULSE 72–93; RESP 18–20; TEMP 97.3–98.5; O2SAT 94–95
[2017-10-16] MEDS: SODIUM CHLOR 0.9% 1000 ML INJ 1,000 ML IV SCH ×3 (01:06→23:05)
[2017-10-16] MEDS: LINEZOLID 600 MG TAB PO SCH (03:08)
[2017-10-16] MEDS: HYDROmorphone HCL PF 2 MG/ML VIAL IV PUSH PRN ×5 (03:10→23:07)
[2017-10-16] MEDS: ACETAMINOPHEN 325 MG TAB PO PRN (06:47)
[2017-10-16 07:31] LABS: AUTOMATED NEUTROPHIL # 7.5 TH/MM3 (1.8-7.7); BASOPHIL % 0.3 % (0.0-2.0); EOSINOPHIL # 0.1 TH/MM3 (0-0.4); EOSINOPHIL % 0.8 % (0.0-4.0); HEMATOCRIT 34.6 % (35.0-46.0); LYMPH % 13.6 % (9.0-44.0); LYMPHOCYTE # 1.3 TH/MM3 (1.0-4.8); MEAN CELL VOLUME 88.8 FL (80.0-100.0); MEAN CORPUSCULAR HEMOGLOBIN 30.8 PG (27.0-34.0); MEAN CORPUSCULAR HGB CONC 34.7 % (32.0-36.0); MEAN PLATELET VOLUME 7.4 FL (7.0-11.0); MONO % 5.8 % (0.0-8.0); MONOCYTE # 0.5 TH/MM3 (0-0.9); NEUT % 79.5 % (16.0-70.0); PLATELET COUNT 326 TH/MM3 (150-450); RED CELL DISTRIBUTION WIDTH 14.7 % (11.6-17.2); WHITE BLOOD COUNT 9.5 TH/MM3 (4.0-11.0)
[2017-10-16 07:39] LABS: ALBUMIN 2.9 GM/DL (3.4-5.0); AST (GOT) 10 U/L (15-37); BICARBONATE 28.5 MEQ/L (21.0-32.0); BLOOD UREA NITROGEN 12 MG/DL (7-18); CALCIUM 8.6 MG/DL (8.5-10.1); CHLORIDE 110 MEQ/L (98-107); CREATININE 1.15 MG/DL (0.50-1.00); GLOMERULAR FILTRATION RATE 48 ML/MIN (>89); GLUCOSE,RANDOM 81 MG/DL (74-106); SODIUM (NA) 144 MEQ/L (136-145)
[2017-10-16 07:40] LABS: ALT (GPT) 13 U/L (10-53)
[2017-10-16 07:42] LABS: ALKALINE PHOSPHATASE 61 U/L (45-117); TOTAL BILIRUBIN ADULT 0.3 MG/DL (0.2-1.0)
[2017-10-16] MEDS: PANTOPRAZOLE SOD 40 MG DELAYED RELEASE TAB PO SCH (07:43)
[2017-10-16] MEDS: PREGABALIN 75 MG CAP PO SCH ×2 (07:43→20:36)
[2017-10-16] MEDS: ENOXAPARIN SODIUM 40 MG/0.4 ML SYRINGE SQ SCH (07:44)
[2017-10-16] MEDS: BUDESONIDE-FORMOTEROL 160/4.5 MCG INHALER INH SCH ×2 (07:46→20:35)
[2017-10-16] MEDS: SODIUM CHLORIDE 0.9% FLUSH 10 ML FLUSH IV FLUSH SCH ×2 (07:46→20:35)
--- NOTE | 2017-10-16 09:02 | HHI.PR ---
Subjective Remarks afebrile pain well controlled still having loose stools Objective Vitals Vital Signs Date Time Temp Pulse Resp B/P (MAP) Pulse Ox O2 Delivery O2 Flow Rate FiO2 10/16/17 07:43 Room Air 10/16/17 07:40 72 10/16/17 07:39 97.5 78 20 129/83 (98) 94 10/16/17 04:35 72 10/16/17 04:00 Room Air 10/16/17 04:00 97.9 82 19 121/75 (90) 94 10/16/17 03:56 18 10/16/17 00:00 98.0 84 18 112/67 (82) 95 10/16/17 00:00 Room Air 10/15/17 23:50 70 10/15/17 20:20 Room Air 10/15/17 20:06 93 10/15/17 20:00 98.9 90 19 125/84 (98) 93 10/15/17 16:00 97.8 88 18 138/78 (98) 95 10/15/17 14:30 97.7 88 19 123/70 (87) 98 Room Air 10/15/17 14:15 91 14 126/72 (90) 99 Nasal Cannula 2 10/15/17 14:00 97 17 125/77 (93) 97 Nasal Cannula 2 10/15/17 13:55 97.5 97 14 124/77 (93) 97 Nasal Cannula 2 10/15/17 12:00 97.7 93 18 141/81 (101) 95 I/O 10/15/17 10/15/17 10/15/17 10/16/17 10/16/17 10/16/17 07:00 15:00 23:00 07:00 15:00 23:00 Intake Total 1810 ml 400 ml 1599 ml 180 ml Output Total 450 ml Balance 1810 ml 400 ml 1599 ml -270 ml Intake Oral 400 ml 0 ml 380 ml 180 ml IV Total 1410 ml 1219 ml Other 400 ml Output Urine Total 450 ml # Voids 3 1 6 # Bowel Movements 1 1 Result Diagram: 10/16/17 0610 10/16/17 0610 Imaging Last Impressions Foot MRI 10/13/17 0000 Signed Impressions: Service Date/Time: Friday, October 13, 2017 16:55 - CONCLUSION: 1. Signal abnormality within the mid shaft of the proximal phalanx of the 1st digit with T2 prolongation but no abnormal enhancement. The configuration suggests a possible sinus tract and possible osteomyelitis. This cannot be stated, however, with certainty. There are no radiographic abnormalities in the region of the abnormal signal. 2. Focal area of field distortion artifact correlates to an irregularity of the skin margin seen medially and dorsally in the 1st digit. No metallic foreign body seen in this area on recent conventional radiographs. Darian Krishnamurthy MD Toe X-Ray 10/12/17 1227 Signed Impressions: Service Date/Time: Thursday, October 12, 2017 12:45 - CONCLUSION: 1. No acute findings. Soft tissue swelling at the great toe. Bpaf-mg-[id number] osteoarthritis. Bob Estrada MD Objective Remarks awake and alert, no acute distress anicteric lungs- no rales regular rhythm abdomen soft right foot- post op dressing in place Procedures 10/15- right hallux incision drainage debridement with incision bone cortex proximal phalanx A/P Assessment and Plan 66 years old female Right hallux abscess - MRSA possbile OM S/P right hallux incision drainage debridement with incision bone cortex proximal phalanx - Podiatry ff - on Zyvox- patient complains of nausea everytime - vancomycin DC 10/14 with increase in creatinine. zosyn DC - diluaid prn for pain - d/w dr Nair- change to Daptomycin 8-10 mg/kg once daily hypotension - likely pain med related- resolved History of hypertension - Patient also reports that she has lost significant weight which might be helping her blood pressure and might not need the same dosing as prior. - hold BP meds HONEY- resolving- non oliguric - continue fluids - ff BMP - Vanco discontinue 10/14 Diarrhea- ? ab associated -increase fluids - check c diff Nausea- ? adverse reaction to Zyvox- -will monitor - no acute abdomen HAD/ Asthma- in remission colon cancer s/p partial colon resection more than 9yrs , no chemo or radiation DVT prophylaxis with Lovenox.- on hold for surgery Sade Cotton MD Oct 16, 2017 09:02
[2017-10-16] MEDS ORDERED: DAPTOmycin INJ 0 MG in SODIUM CHLORIDE 0.9% INJ 100 ML IV SCH (09:15)
[2017-10-16] MEDS: DAPTOmycin INJ 700 MG in SODIUM CHLORIDE 0.9% INJ 100 ML IV SCH (12:39)
[2017-10-16] MEDS ORDERED: PHARMACY ORDERED LAB ONE (15:45)
--- NOTE | 2017-10-16 15:54 | PD.POD ---
Subjective Pain score: 3 Remarks Pain has somewhat improved Past Med/Surg/Social History Social History Smoking Status: Former Smoker Objective Vital Signs Vital Signs Date Time Temp Pulse Resp B/P (MAP) Pulse Ox O2 Delivery O2 Flow Rate FiO2 10/16/17 12:17 86 10/16/17 12:00 97.3 80 18 122/86 (98) 94 10/16/17 07:43 Room Air 10/16/17 07:40 72 10/16/17 07:39 97.5 78 20 129/83 (98) 94 10/16/17 04:35 72 10/16/17 04:00 Room Air 10/16/17 04:00 97.9 82 19 121/75 (90) 94 10/16/17 03:56 18 10/16/17 00:00 98.0 84 18 112/67 (82) 95 10/16/17 00:00 Room Air 10/15/17 23:50 70 10/15/17 20:20 Room Air 10/15/17 20:06 93 10/15/17 20:00 98.9 90 19 125/84 (98) 93 10/15/17 16:00 97.8 88 18 138/78 (98) 95 Coded Allergies: meperidine (Verified Allergy, Severe, Hallucinations, 10/12/17) morphine (Verified Allergy, Intermediate, nausea and vomiting, 10/12/17) Medications and IVs Administered Medications Medications (Trade) Dose Ordered Sig/Meet Route PRN Reason Start Time Stop Time Status Last Admin Dose Admin Sodium Chloride (NS Flush) 2 ml BID IV FLUSH 10/12/17 21:00 10/15/17 20:35 Montelukast Sodium (Singulair) 10 mg HS PO 10/12/17 21:00 10/15/17 20:32 Pregabalin (Lyrica) 150 mg BID PO 10/12/17 21:00 10/16/17 07:43 Pantoprazole Sodium (Protonix) 40 mg DAILY PO 10/13/17 09:00 10/16/17 07:43 Budesonide/ Formoterol Fumarate (Symbicort 160-4.5 Mcg Inh) 2 puff BID INH 10/12/17 21:00 10/14/17 20:21 Enoxaparin Sodium (Lovenox Inj) 40 mg Q24H SQ 10/13/17 09:00 10/16/17 07:44 Hydromorphone HCl (Dilaudid Pf Inj) 0.2 mg Q4H PRN IV PUSH PAIN > 5 10/12/17 18:30 10/16/17 14:47 Sodium Chloride 1,000 ml @ 70 mls/hr [id number] IV 10/13/17 14:00 10/16/17 12:42 Ondansetron HCl (Zofran Inj) 4 mg Q8HR PRN IV PUSH NAUSEA 10/15/17 10:00 10/15/17 11:14 Acetaminophen (Tylenol) 650 mg Q6H PRN PO HEADACHE 10/15/17 18:30 10/16/17 06:47 Daptomycin 700 mg/ Sodium Chloride 100 ml @ 200 mls/hr Q24H IV 10/16/17 12:00 10/16/17 12:39 Other Results Laboratory Tests Test 10/16/17 06:10 White Blood Count 9.5 TH/MM3 Red Blood Count 3.90 MIL/MM3 Hemoglobin 12.0 GM/DL Hematocrit 34.6 % Mean Corpuscular Volume 88.8 FL Mean Corpuscular Hemoglobin 30.8 PG Mean Corpuscular Hemoglobin Concent 34.7 % Red Cell Distribution Width 14.7 % Platelet Count 326 TH/MM3 Mean Platelet Volume 7.4 FL Neutrophils (%) (Auto) 79.5 % Lymphocytes (%) (Auto) 13.6 % Monocytes (%) (Auto) 5.8 % Eosinophils (%) (Auto) 0.8 % Basophils (%) (Auto) 0.3 % Neutrophils # (Auto) 7.5 TH/MM3 Lymphocytes # (Auto) 1.3 TH/MM3 Monocytes # (Auto) 0.5 TH/MM3 Eosinophils # (Auto) 0.1 TH/MM3 Basophils # (Auto) 0.0 TH/MM3 CBC Comment DIFF FINAL Differential Comment Laboratory Tests Test 10/15/17 06:11 10/15/17 15:59 10/16/17 06:10 Blood Urea Nitrogen 20 MG/DL 12 MG/DL Creatinine 1.49 MG/DL 1.15 MG/DL Random Glucose 80 MG/DL 81 MG/DL Calcium Level 8.6 MG/DL 8.6 MG/DL Sodium Level 142 MEQ/L 144 MEQ/L Potassium Level 4.3 MEQ/L 3.7 MEQ/L Chloride Level 108 MEQ/L 110 MEQ/L Carbon Dioxide Level 29.3 MEQ/L 28.5 MEQ/L Anion Gap 5 MEQ/L 6 MEQ/L Estimat Glomerular Filtration Rate 35 ML/MIN 48 ML/MIN Hemoglobin A1c 5.4 % Total Protein 6.0 GM/DL Albumin 2.9 GM/DL Alkaline Phosphatase 61 U/L Aspartate Amino Transf (AST/SGOT) 10 U/L Alanine Aminotransferase (ALT/SGPT) 13 U/L Total Bilirubin 0.3 MG/DL Microbiology Date/Time Source Procedure Growth Status 10/15/17 13:37 Wound Foot Fungal Smear - Final NO FUNGAL ELEMENTS SEEN. Resulted 10/15/17 13:37 Wound Foot Fungal Culture Pending Resulted 10/15/17 13:37 Wound Foot Acid Fast Stain - Final NO ACID FAST BACILLI SEEN Resulted 10/15/17 13:37 Wound Foot Mycobacterial Culture Pending Resulted 10/15/17 13:37 Wound Foot Gram Stain - Final Resulted 10/15/17 13:37 Wound Culture - Preliminary S. Aureus Mrsa Resulted Physical Exam Remarks Right lower extremity examined incision over the dorsal aspect of the first digit IPJ loosely coapted with minimal serosanguineous type drainage, packing intact, no ischemic changes localized redness to the digit pain has definitely improved Assessment & Plan Diagnosis: (1) Abscess of right foot including toes ICD Codes: L02.611 - Cutaneous abscess of right foot (2) Osteomyelitis of ankle or foot, right, acute ICD Codes: M86.171 - Other acute osteomyelitis, right ankle and foot A/P Packing removed, bandage applied recommending arrangement for home health and outpatient follow-up on IV antibiotics, patient is permitted heel weight-bear will order a postop shoe plan on discharge within the next 1-2 days pending outpatient home health and antibiotic arrangement Victor Manuel Hurt DPM Oct 16, 2017 15:54
--- NOTE | 2017-10-16 17:55 | HHI.IDPN ---
Subjective Subjective Remarks pt has problems yday with nausea aw zyvox switched to daptomycin, tolerating OK cleared for dc by Dr Campo HONEY nearly completely resolved no fever repeatedly grew out MRSA fromhallux clx Antibiotics daptomuycin Allergies: Coded Allergies: meperidine (Verified Allergy, Severe, Hallucinations, 10/12/17) morphine (Verified Allergy, Intermediate, nausea and vomiting, 10/12/17) Objective . Vital Signs Date Time Temp Pulse Resp B/P (MAP) Pulse Ox O2 Delivery O2 Flow Rate FiO2 10/16/17 12:17 86 10/16/17 12:00 97.3 80 18 122/86 (98) 94 10/16/17 07:43 Room Air 10/16/17 07:40 72 10/16/17 07:39 97.5 78 20 129/83 (98) 94 10/16/17 04:35 72 10/16/17 04:00 Room Air 10/16/17 04:00 97.9 82 19 121/75 (90) 94 10/16/17 03:56 18 10/16/17 00:00 98.0 84 18 112/67 (82) 95 10/16/17 00:00 Room Air 10/15/17 23:50 70 10/15/17 20:20 Room Air 10/15/17 20:06 93 10/15/17 20:00 98.9 90 19 125/84 (98) 93 10/16/17 10/16/17 10/17/17 15:00 23:00 07:00 Intake Total 1100 ml Balance 1100 ml IV Total 1100 ml . Laboratory Tests Test 10/16/17 06:10 White Blood Count 9.5 TH/MM3 Red Blood Count 3.90 MIL/MM3 Hemoglobin 12.0 GM/DL Hematocrit 34.6 % Mean Corpuscular Volume 88.8 FL Mean Corpuscular Hemoglobin 30.8 PG Mean Corpuscular Hemoglobin Concent 34.7 % Red Cell Distribution Width 14.7 % Platelet Count 326 TH/MM3 Mean Platelet Volume 7.4 FL Neutrophils (%) (Auto) 79.5 % Lymphocytes (%) (Auto) 13.6 % Monocytes (%) (Auto) 5.8 % Eosinophils (%) (Auto) 0.8 % Basophils (%) (Auto) 0.3 % Neutrophils # (Auto) 7.5 TH/MM3 Lymphocytes # (Auto) 1.3 TH/MM3 Monocytes # (Auto) 0.5 TH/MM3 Eosinophils # (Auto) 0.1 TH/MM3 Basophils # (Auto) 0.0 TH/MM3 CBC Comment DIFF FINAL Differential Comment Laboratory Tests Test 10/15/17 06:11 10/15/17 15:59 10/16/17 06:10 Blood Urea Nitrogen 20 MG/DL 12 MG/DL Creatinine 1.49 MG/DL 1.15 MG/DL Random Glucose 80 MG/DL 81 MG/DL Calcium Level 8.6 MG/DL 8.6 MG/DL Sodium Level 142 MEQ/L 144 MEQ/L Potassium Level 4.3 MEQ/L 3.7 MEQ/L Chloride Level 108 MEQ/L 110 MEQ/L Carbon Dioxide Level 29.3 MEQ/L 28.5 MEQ/L Anion Gap 5 MEQ/L 6 MEQ/L Estimat Glomerular Filtration Rate 35 ML/MIN 48 ML/MIN Hemoglobin A1c 5.4 % Total Protein 6.0 GM/DL Albumin 2.9 GM/DL Alkaline Phosphatase 61 U/L Aspartate Amino Transf (AST/SGOT) 10 U/L Alanine Aminotransferase (ALT/SGPT) 13 U/L Total Bilirubin 0.3 MG/DL Microbiology Date/Time Source Procedure Growth Status 10/15/17 13:37 Wound Foot Fungal Smear - Final NO FUNGAL ELEMENTS SEEN. Resulted 10/15/17 13:37 Wound Foot Fungal Culture Pending Resulted 10/15/17 13:37 Wound Foot Acid Fast Stain - Final NO ACID FAST BACILLI SEEN Resulted 10/15/17 13:37 Wound Foot Mycobacterial Culture Pending Resulted 10/15/17 13:37 Wound Foot Gram Stain - Final Resulted 10/15/17 13:37 Wound Culture - Preliminary S. Aureus Mrsa Resulted Imaging Last Impressions Foot MRI 10/13/17 0000 Signed Impressions: Service Date/Time: Friday, October 13, 2017 16:55 - CONCLUSION: 1. Signal abnormality within the mid shaft of the proximal phalanx of the 1st digit with T2 prolongation but no abnormal enhancement. The configuration suggests a possible sinus tract and possible osteomyelitis. This cannot be stated, however, with certainty. There are no radiographic abnormalities in the region of the abnormal signal. 2. Focal area of field distortion artifact correlates to an irregularity of the skin margin seen medially and dorsally in the 1st digit. No metallic foreign body seen in this area on recent conventional radiographs. Darian Krishnamurthy MD Toe X-Ray 10/12/17 1227 Signed Impressions: Service Date/Time: Thursday, October 12, 2017 12:45 - CONCLUSION: 1. No acute findings. Soft tissue swelling at the great toe. Tuce-[id number] osteoarthritis. Bob Estrada MD Physical Exam CONSTITUTIONAL/GENERAL: This is an obese elderly patient, in no apparent distress. TUBES/LINES/DRAINS: SKIN: No jaundice, rashes, or lesions. Skin temperature appropriate. Not diaphoretic. CARDIOVASCULAR: Regular rate and rhythm without murmurs, gallops, or rubs. RESPIRATORY/CHEST: Symmetric, unlabored respirations. Clear to auscultation. Breath sounds equal bilaterally. No wheezes, rales, or rhonchi. GASTROINTESTINAL: Abdomen soft, non-tender, nondistended. No hepato-splenomegaly , or palpable masses. No guarding. Bowel sounds present. MUSCULOSKELETAL: Extremities without clubbing, cyanosis, or edema. R foot with post op dressing in place NEUROLOGICAL: Awake and alert. Non focal Assessment & Plan Remarks Assessment and Plan Assessment and Plan R hallux osteomyelitis following surgical procedure, MRSA Failed empiric clindamycin 2/2 resistance to the agent HONEY on zosyn, vanco; resolved Nausea, severe aw zyvox - resolved p discontinuatioan zyvox was stopped daptomycin 8-10 mg/kg x 6 wks PICC OK to dc from ID standpoint dw Dr Blu Nair,Ciara Aragon MD Oct 16, 2017 17:55
--- NOTE | 2017-10-16 18:03 | HHI.FF ---
Infusion Therapy Location of Infusion Therapy: Home [facility] Care IV Infusion Order Patient Information Patient Weight 82.7 kg Diagnosis: Diagnosis R hallu x osteomyelitis Coded Allergies: meperidine (Verified Allergy, Severe, Hallucinations, 10/12/17) morphine (Verified Allergy, Intermediate, nausea and vomiting, 10/12/17) Administer Medication Daptomycin 700 mg IV daily Start Treatment: Oct 16, 2017 Stop Treatment: Nov 25, 2017 Additional Information Venous access: PICC Line Additional Instructions [x] Peripheral flush and dressing changes per protocol [x] Implanted port and central multi line claims adjuster: * Implanted port: 10 ml Normal Saline followed by 5 ml Heparin 100 units/ml Heparin flush after each use and monthly to maintain. [] May leave port accessed during therapy. [] May leave peripheral site accessed for duration of therapy. [x] If patient has SOB or respiratory distress, check oxygen saturation. If less than 90% or clinical signs of respiratory distress, administer oxygen at 2 L/min. via nasal cannula and notify physician. [x] Anaphylaxis/Reaction orders: * Stop infusion. * Keep IV line open with saline flush. * Notify physician. * Monitor vital signs every 15 minutes until symptoms resolve. * Check Oxygen saturation; Oxygen at 2 L/min. via nasal cannula if less than 90% or clinical signs of respiratory distress. * Administer diphenhydramine (Benadryl) 25 mg IV STAT, (unless patient has received as pre-med). May repeat once, if necessary. * Solu-Cortef 250 mg IVP over 30-60 seconds, use 100 mg vials for each dissolution. * Epinephrine (1mg/1 ml) 0.3 mg subcutaneously or IVP now with any signs of respiratory distress. * Check with physician for new additional pre-med orders if patient is re- challenged or re-treated. [x] May remove PICC line when treatment complete, after confirming with Physician. [x] If the patient is admitted to the hospital, the ED, or transferred via [facility] , complete transfer form including medication reconciliation order sheet. Laboratory Tests Weekly Labs: CBC w/diff, Creatinine, CRP, SED Rate, Serum CK Levels Ciara Nair MD Oct 16, 2017 18:03
[2017-10-16] MEDS: MONTELUKAST SODIUM 10 MG TAB PO SCH (20:36)
[2017-10-17] VITALS: BP 139/85; PULSE 71; PULSE 76; RESP 16; TEMP 97.8; O2SAT 92
[2017-10-17] MEDS: HYDROmorphone HCL PF 2 MG/ML VIAL IV PUSH PRN ×2 (03:30→08:46)
[2017-10-17 04:00] VITALS: BP 130/78; PULSE 74; PULSE 80; RESP 16; TEMP 98.3; O2SAT 92
[2017-10-17] MEDS: SODIUM CHLORIDE 0.9% FLUSH 10 ML FLUSH IV FLUSH SCH (08:48)
[2017-10-17] MEDS: PREGABALIN 75 MG CAP PO SCH (08:48)
[2017-10-17] MEDS: BUDESONIDE-FORMOTEROL 160/4.5 MCG INHALER INH SCH (08:48)
[2017-10-17] MEDS: ENOXAPARIN SODIUM 40 MG/0.4 ML SYRINGE SQ SCH (08:48)
[2017-10-17] MEDS: PANTOPRAZOLE SOD 40 MG DELAYED RELEASE TAB PO SCH (08:48)
[2017-10-17 08:59] VITALS: BP 145/93; PULSE 82; RESP 18; TEMP 98.1; O2SAT 94
--- NOTE | 2017-10-17 09:53 | HHI.PR ---
Subjective Remarks no complains no nausea, vomiting or diarrhea voiding well Objective Vitals Vital Signs Date Time Temp Pulse Resp B/P (MAP) Pulse Ox O2 Delivery O2 Flow Rate FiO2 10/17/17 08:59 98.1 82 18 145/93 (110) 94 10/17/17 04:00 98.3 80 16 130/78 (95) 92 10/17/17 04:00 74 10/17/17 04:00 18 10/17/17 00:00 71 10/17/17 00:00 97.8 76 16 139/85 (103) 92 10/16/17 21:36 18 10/16/17 20:00 85 10/16/17 20:00 98.2 85 20 149/83 (105) 95 10/16/17 16:00 98.0 85 20 121/78 (92) 94 10/16/17 15:58 74 10/16/17 12:17 86 10/16/17 12:00 97.3 80 18 122/86 (98) 94 I/O 10/16/17 10/16/17 10/16/17 10/17/17 10/17/17 10/17/17 07:00 15:00 23:00 07:00 15:00 23:00 Intake Total 180 ml 1580 ml 660 ml Output Total 450 ml Balance -270 ml 1580 ml 660 ml Intake Oral 180 ml 480 ml 660 ml IV Total 1100 ml Output Urine Total 450 ml # Voids 4 3 # Bowel Movements 1 1 0 Result Diagram: 10/16/17 0610 10/16/17 0610 Imaging Last Impressions Foot MRI 10/13/17 0000 Signed Impressions: Service Date/Time: Friday, October 13, 2017 16:55 - CONCLUSION: 1. Signal abnormality within the mid shaft of the proximal phalanx of the 1st digit with T2 prolongation but no abnormal enhancement. The configuration suggests a possible sinus tract and possible osteomyelitis. This cannot be stated, however, with certainty. There are no radiographic abnormalities in the region of the abnormal signal. 2. Focal area of field distortion artifact correlates to an irregularity of the skin margin seen medially and dorsally in the 1st digit. No metallic foreign body seen in this area on recent conventional radiographs. Darian Krishnamurthy MD Toe X-Ray 10/12/17 1227 Signed Impressions: Service Date/Time: Thursday, October 12, 2017 12:45 - CONCLUSION: 1. No acute findings. Soft tissue swelling at the great toe. [id number]-[id number] osteoarthritis. Bob Estrada MD Objective Remarks awake and alert, no acute distress anicteric lungs- no rales regular rhythm abdomen soft right foot- post op dressing in place Procedures 10/15- right hallux incision drainage debridement with incision bone cortex proximal phalanx A/P Assessment and Plan 66 years old female Right hallux abscess - MRSA possbile OM S/P right hallux incision drainage debridement with incision bone cortex proximal phalanx - Podiatry ff - + adverse reactions to Zyvox- patient complains of nausea/vomitng everytime - vancomycin DC 10/14 with increase in creatinine. zosyn DC - diluaid prn for pain - was change to Daptomycin 8-10 mg/kg once daily 10/16- tolerating well so far - will d/w ID- hypotension - likely pain med related- resolved History of hypertension - Patient also reports that she has lost significant weight which might be helping her blood pressure and might not need the same dosing as prior. - hold BP meds HONEY- resolving- non oliguric - continue fluids - ff BMP - Vanco discontinue 10/14 - ff BMP Diarrhea-/N/V- resolved HAD/ Asthma- in remission colon cancer s/p partial colon resection more than 9yrs , no chemo or radiation DVT prophylaxis with Lovenox.- PT ff- patient states has DMEs at home awaiting PICC placement Sade Cotton MD Oct 17, 2017 09:53
[2017-10-17] MEDS ORDERED: ACETAMINOPHEN/HYDROcodone 325 MG/5 MG TAB PO PRN (10:00)
[2017-10-17] MEDS ORDERED: HYDROmorphone HCL PF 2 MG/ML VIAL IV PUSH PRN (10:30)
[2017-10-17 12:00] VITALS: BP 135/89; PULSE 87; RESP 17; TEMP 97.7; O2SAT 95
[2017-10-17] MEDS ORDERED: SODIUM CHLORIDE 0.9% FLUSH 10 ML FLUSH IV FLUSH PRN (12:00)
--- NOTE | 2017-10-17 12:08 | RADRPT ---
EXAM DATE/TIME: 10/17/2017 11:56 [facility] COMPARISON: No previous studies available for comparison. INDICATIONS : Post Picc Line placement. MEDICAL HISTORY : Carcinoma, colon. SURGICAL HISTORY : Colon. Breast reduction. Bi-lateral knee replacement. ENCOUNTER: Subsequent ACUITY: 1 day PAIN SCORE: 3/10 LOCATION: Bilateral chest FINDINGS: A single view of the chest demonstrates the lungs to be symmetrically aerated without evidence of mas s, infiltrate or effusion. There is a right-sided PICC line in place. The line is in good position. There is no pneumothorax. The cardiomediastinal contours are unremarkable. Osseous structures are in tact. CONCLUSION: 1. Right PICC line in good position. 2. No pneumothorax. Emmanuel Calero MD on October 17, 2017 at 12:06 Board Certified Radiologist. This report was verified electronically.
[2017-10-17] MEDS: DAPTOmycin INJ 700 MG in SODIUM CHLORIDE 0.9% INJ 100 ML IV SCH (12:56)
[2017-10-17] MEDS ORDERED: NORC5TAB PO (14:25)
--- NOTE | 2017-10-17 19:09 | HHI.DS ---
Discharge Summary Admission Date Oct 12, 2017 at 15:21 Discharge Date: Oct 17, 2017 Admitting Diagnosis right foot cellulitis failed outpt. abx, diabetes mellitus. Procedures 10/15- right hallux incision drainage debridement with incision bone cortex proximal phalanx Brief History - From Admission History from patient, ER physician communication, and review medical records. Patient reported that on Thursday, she had a cyst removed at the medial aspect of her right grade toe. After that, starting Thursday, she started having redness and swelling around the surgical site with streaking up into her foot. She presented to [place] emergency room. She states her fever was 101. She was discharged home on clindamycin. She reports she had severe pain and she could barely put weight on it. Despite taking clindamycin for past 2 days course, she was not improving with the redness streaking up to her lower extremities which is why she went to her head transfer clerk. She was sent from the doctor who saw her there to the emergency room for inpatient IV antibiotics. Patient denies being diabetic. She did however have history of pneumonia a few weeks ago for which she took antibiotics for about 14 days. She finished those antibiotics about a week ago. Apart from the above, patient denies any other symptoms. Denies diarrhea. CBC/BMP: 10/16/17 0610 10/16/17 0610 Significant Findings Laboratory Tests Test 10/15/17 06:11 10/15/17 15:59 10/16/17 06:10 10/16/17 08:15 Blood Urea Nitrogen 20 MG/DL (7-18) Creatinine 1.49 MG/DL (0.50-1.00) 1.15 MG/DL (0.50-1.00) Chloride Level 108 MEQ/L (98-107) 110 MEQ/L (98-107) Estimat Glomerular Filtration Rate 35 ML/MIN (>89) 48 ML/MIN (>89) Red Blood Count 3.90 MIL/MM3 (4.00-5.30) Hematocrit 34.6 % (35.0-46.0) Neutrophils (%) (Auto) 79.5 % (16.0-70.0) Total Protein 6.0 GM/DL (6.4-8.2) Albumin 2.9 GM/DL (3.4-5.0) Aspartate Amino Transf (AST/SGOT) 10 U/L (15-37) Imaging Last Impressions Chest X-Ray 10/17/17 0000 Signed Impressions: Service Date/Time: Tuesday, October 17, 2017 11:56 - CONCLUSION: 1. Right PICC line in good position. 2. No pneumothorax. Emmanuel Calero MD Foot MRI 10/13/17 0000 Signed Impressions: Service Date/Time: Friday, October 13, 2017 16:55 - CONCLUSION: 1. Signal abnormality within the mid shaft of the proximal phalanx of the 1st digit with T2 prolongation but no abnormal enhancement. The configuration suggests a possible sinus tract and possible osteomyelitis. This cannot be stated, however, with certainty. There are no radiographic abnormalities in the region of the abnormal signal. 2. Focal area of field distortion artifact correlates to an irregularity of the skin margin seen medially and dorsally in the 1st digit. No metallic foreign body seen in this area on recent conventional radiographs. Darian Krishnamurthy MD Toe X-Ray 10/12/17 1227 Signed Impressions: Service Date/Time: Thursday, October 12, 2017 12:45 - CONCLUSION: 1. No acute findings. Soft tissue swelling at the great toe. [id number] osteoarthritis. Bob Estrada MD PE at Discharge awake and alert, no acute distress anicteric lungs- no rales regular rhythm abdomen soft right foot- post op dressing in place Pt update on day of discharge afebrile, pain controlled motivated Hospital Course 66 years old female Right hallux abscess - MRSA possbile OM S/P right hallux incision drainage debridement with incision bone cortex proximal phalanx - Podiatry ff - + adverse reactions to Zyvox- patient complains of nausea/vomitng everytime - vancomycin DC 10/14 with increase in creatinine. zosyn DC - diluaid prn for pain - was change to Daptomycin 8-10 mg/kg once daily 10/16- tolerating well so far - PICC hypotension - likely pain med related- resolved History of hypertension - Patient also reports that she has lost significant weight which might be helping her blood pressure and might not need the same dosing as prior. - hold BP meds HONEY- resolving- non oliguric - continue fluids - ff BMP - Vanco discontinue 10/14 - ff BMP Diarrhea-/N/V- resolved HAD/ Asthma- in remission colon cancer s/p partial colon resection more than 9yrs , no chemo or radiation DVT prophylaxis with Lovenox.- PT ff- patient states has DMEs at home Pt Condition on Discharge: Stable Discharge Disposition: Disch w/ Home Health Serv Discharge Time: > 30 minutes Discharge Instructions DIET: Follow Instructions for: As Tolerated, No Restrictions, Heart Healthy Diet, Diabetic Diet Speech Therapy-Diet Recommends: Regular Activities you can perform: Weight Bearing as [place] Follow up Referrals: PCP Follow-up - 3-5 Days Podiatry - 3-5 Days with Victor Manuel Hurt DPM SNF/[facility]/ with [facility] New Medications: Hydrocodone-Acetaminophen ([place]) 5 Mg-325 Mg Tab 1 TAB PO Q6H PRN for PAIN, #20 TAB 0 Refills Continued Medications: Cholecalciferol (Vitamin D3) 5,000 Unit Cap 5000 UNITS PO DAILY for Nutritional Supplement, #30 CAP 0 Refills Cyanocobalamin (Vitamin B-12) 1,000 Mcg Tab Unknown Dose PO DAILY for Nutritional Supplement, #1 BOTTLE 0 Refills Dexlansoprazole (Dexilant) 60 Mg Cap.bp 60 MG PO DAILY Fluticasone-Salmeterol Inh (Advair Diskus Inh) 250-50 Mcg/Blist Aer 1 PUFF INH BID, #1 INHALER 0 Refills Rinse mouth after use. Montelukast (Singulair) 10 Mg Tab 10 MG PO HS, #30 TAB 0 Refills Pregabalin (Lyrica) 150 Mg Cap 150 MG PO BID, #60 CAP 0 Refills Tramadol (Tramadol) 50 Mg Tab 50 MG PO BID PRN for PAIN, TAB 0 Refills Discontinued Medications: Celecoxib (Celecoxib) 200 Mg Cap 200 MG PO BID for Pain Management, CAP 0 Refills Clindamycin (Clindamycin) 300 Mg Cap 300 MG PO Q6H for Infection for 10 Days, #40 CAP 0 Refills Lisinopril (Lisinopril) 10 Mg Tab 10 MG PO DAILY, #30 TAB 0 Refills Sade Cotton MD Oct 17, 2017 19:09
--- NOTE | 2017-10-17 21:57 | MP ---
cc: LEO RUDOLPH DPM DATE OF SURGERY 10/15/17 PREOPERATIVE DIAGNOSIS Right hallux IPJ ulcer, abscess possible septic joint with osteomyelitis. POSTOPERATIVE DIAGNOSIS Right hallux IPJ ulcer, abscess possible septic joint with osteomyelitis. PROCEDURES PERFORMED Right hallux incision and drainage, debridement with incision bone cortex proximal phalanx. FINDINGS Intraoperative pus within the joint tendon, hard bone was noted. COMPLICATIONS None SPECIMEN Bone and soft tissue for microbial and pathological analysis ANESTHESIA General with local with 10 mL of 0.25% Marcaine plain TOURNIQUET TIME 20 minutes at 250 mmHg ESTIMATED BLOOD LOSS Less than 10 mL COMPLICATIONS None DISPOSITION Return to floor. Monitor wound healing. May need surgery at a later date. JUSTIFICATION FOR PROCEDURE A 66-year-old female with worsening redness after a soft tissue biopsy that has come back as a verruca from my office by one of my associates. Significant erythema and MRI showed likely deep infection with possible osteomyelitis. We devised a plan to move forward with incision, drainage and debridement to debulk the infection. PROCEDURE IN DETAIL Under mild sedation, the patient is brought into the operating room, placed on the operating table in supine position. Following the induction of local anesthesia, the right foot was then scrubbed, prepped, draped in the usual aseptic fashion. The foot was elevated, exsanguinated. The placed mid calf tourniquet was inflated at 250 mmHg. A linear incision was made over the dorsal medial aspect of the hallux IPJ. Sharp and blunt dissection was carried down through liquefaction necrosis down to the joint level. There was noted be purulence within the IPJ and along the extensor hallucis tendon. The incision was then carried down just at the base of the proximal phalanx where the infection seemed to stop. Copious amounts of normal saline was used to lavage the wound. Curette and rongeur were also used to debride all nonviable tissue. Packing was then placed within the wound. Before closing the wound, a rongeur was used to take a small piece of bone from the dorsal aspect of the proximal phalanx. Retention sutures were then placed loosely. A bulky bandage placed. Upon relieving the tourniquet, there was a prompt hyperemic response to all digits without any delayed capillary fill time. A bulky bandage placed. The patient was transferred from OR to PACU with all vital signs stable. We will continue to monitor the patient's clinical progress. ADAN Monroy/ /1:55 PM /9:45 PM
[2017-10-18] MEDS ORDERED: SODIUM CHLORIDE 0.9% FLUSH 10 ML FLUSH IV FLUSH SCH (09:00)
== END 2017-10-17 15:52 | disposition home health service (06) | DRG 629 ==
LOC: NEPC 12:09 → NEDA 15:21 → N04B 15:55
PROVIDERS: ADMIT Internal Medicine; ATTEND Internal Medicine
PROC: 0JDQ0ZZ Extraction of Right Foot Subcutaneous Tissue and Fascia, Open Approach (ICD-10-PCS; 2017-10-15)
PROC: 0QBN0ZX Excision of Right Metatarsal, Open Approach, Diagnostic (ICD-10-PCS; principal; 2017-10-15 13:05)
PROC: 02HV33Z Insertion of Infusion Device into Superior Vena Cava, Percutaneous Approach (ICD-10-PCS; 2017-10-17)
DX: E11.69 Type 2 diabetes mellitus with other specified complication (principal); M86.171 Other acute osteomyelitis, right ankle and foot; N17.9 Acute kidney failure, unspecified; E11.621 Type 2 diabetes mellitus with foot ulcer; I95.9 Hypotension, unspecified; L03.115 Cellulitis of right lower limb; M00.071 Staphylococcal arthritis, right ankle and foot; L02.611 Cutaneous abscess of right foot; R11.2 Nausea with vomiting, unspecified; L97.519 Non-pressure chronic ulcer of other part of right foot with unspecified severity; M65.171 Other infective (teno)synovitis, right ankle and foot; I10 Essential (primary) hypertension; R19.7 Diarrhea, unspecified; T36.8X5A Adverse effect of other systemic antibiotics, initial encounter; J45.909 Unspecified asthma, uncomplicated; M19.90 Unspecified osteoarthritis, unspecified site; B95.62 Methicillin resistant Staphylococcus aureus infection as the cause of diseases classified elsewhere; Z85.038 Personal history of other malignant neoplasm of large intestine; Z87.891 Personal history of nicotine dependence; Z88.5 Allergy status to narcotic agent; Z96.659 Presence of unspecified artificial knee joint; L03.031 Cellulitis of right toe; Z88.8 Allergy status to other drugs, medicaments and biological substances; Z79.899 Other long term (current) drug therapy
CPT/HCPCS: 36569; 71045; 73660; 73720; 76937; 80048; 80053; 80202; 82565; 83036; 85025; 86403; 87015; 87040; 87070; 87102; 87116; 87147; 87176; 87186; 87205; 87206; 87493; 88305; 88307; 88311; 96374; 96375; 99283; A9579; J0330; J0878; J1100; J1170; J1200; J1650; J2405; J2543; J2930; J3010; J3370; J7030; J7040; J7050; L3260